=== PATIENT | male | born 1990 | race Caucasian/White ===

== ENCOUNTER 2019-04-11 08:08 | Emergency (ER) | payer SELFPAY ==
[~2019-04-11] VITALS: Ht 137 cm; Wt 108.0 kg
[~2019-04-11 08:08] MED LIST: CYCL10TA9 PO; KETO75CA PO
[2019-04-11] MEDS ORDERED: NS IV 1000 ML 1,000 ML IV SCH (08:28)
--- NOTE | 2019-04-11 08:28 | ED Abdominal Pain ---
General Stated Complaint: BLOOD IN STOOL History of Present Illness Date Seen by Provider: Apr 11, 2019 Time Seen by Provider: 08:23 Initial Comments 28-year-old male presents with blood in his stool. Patient reports that couple days ago he started having some abdominal cramping nausea vomiting after eating some food. He got little bit better than it got worse. Reports he has severe cramping in his lower abdomen feeling like he needs to defecate. Area is very little come out with some what appears to be flakes of blood" with the stool. Patient nausea and vomiting have resolved. He is passing gas. He reports that he's had some hematochezia in the past but nothing like this. He denies any urinary symptoms. He reports that when he gets really that have a stool he gets very sweaty. He denies any other systemic complaints. Allergies and Home Medications Allergies Coded Allergies: No Known Drug Allergies (Unverified , 07/26/14) Home Medications Ciprofloxacin HCl 500 Mg Tablet, 500 MG PO BID Prescribed by: PHYLICIA SULLIVAN on 04/11/19 1056 Dicyclomine HCl 20 Mg Tablet, 20 MG PO TID PRN for PAIN-MODERATE (5-7) Prescribed by: PHYLICIA SULLIVAN on 04/11/19 1056 Metronidazole 500 Mg Tablet, 500 MG PO BID Prescribed by: PHYLICIA SULLIVAN on 04/11/19 1056 Patient Home Medication List Home Medication List Reviewed: Yes Review of Systems Review of Systems Constitutional: No chills; diaphoresis; No fever Respiratory: No Symptoms Reported; Denies Cough, Denies Shortness of Air Cardiovascular: Denies Chest Pain, Denies Irregular Heart Rate Gastrointestinal: See HPI Genitourinary: No Symptoms Reported Skin: no symptoms reported Psychiatric/Neurological: No Symptoms Reported Past Wosojia-Wxqfkz-Gdwrlw Hx Past Med/Social Hx: Reviewed Nursing Past Med/Soc Hx Patient Social History Recent Foreign Travel: No Contact w/Someone Who Travel: No Immunizations Up To Date Tetanus Booster (TDap): Unknown Past Medical History Reproductive Disorders: No Sexually Transmitted Disease: No HIV/AIDS: No Adverse Reaction/Blood Tranf: No Physical Exam Vital Signs Vital Signs - First Documented 04/11/19 08:18 Temp 36.1 Pulse 107 Resp 20 B/P (MAP) 137/108 (118) Pulse Ox 99 Capillary Refill : Height/Weight/BMI Height: 5'11" Weight: 212lbs. oz. 96.595656tb; BMI Method: General Appearance: mild distress Neck: non-tender, full range of motion Respiratory: chest non-tender, lungs clear, normal breath sounds Cardiovascular: normal peripheral pulses, regular rate, rhythm Peripheral Pulses: 2+ Carotid (R), 2+ Carotid (L) Gastrointestinal: non tender, soft; No distended Extremities: normal range of motion, non-tender Neurologic/Psychiatric: telephone sales agent II-XII nml as tested, normal mood/affect, oriented x 3 Skin: normal color, warm/dry Lymphatic: no adenopathy Progress/Results/Core Measures Results/Orders Lab Results Laboratory Tests Test 04/11/19 08:35 04/11/19 08:56 Range/Units White Blood Count 10.7 4.3-11.0 10^3/uL Red Blood Count 5.80 4.35-5.85 10^6/uL Hemoglobin 16.5 13.3-17.7 G/DL Hematocrit 48 40-54 % Mean Corpuscular Volume 82 80-99 FL Mean Corpuscular Hemoglobin 28 25-34 PG Mean Corpuscular Hemoglobin Concent 35 32-36 G/DL Red Cell Distribution Width 12.9 10.0-14.5 % Platelet Count 249 130-400 10^3/uL Mean Platelet Volume 9.9 7.4-10.4 FL Neutrophils (%) (Auto) 83 H 42-75 % Lymphocytes (%) (Auto) 7 L 12-44 % Monocytes (%) (Auto) 10 0-12 % Eosinophils (%) (Auto) 0 0-10 % Basophils (%) (Auto) 0 0-10 % Neutrophils # (Auto) 8.9 H 1.8-7.8 X 10^3 Lymphocytes # (Auto) 0.8 L 1.0-4.0 X 10^3 Monocytes # (Auto) 1.0 0.0-1.0 X 10^3 Eosinophils # (Auto) 0.0 0.0-0.3 10^3/uL Basophils # (Auto) 0.0 0.0-0.1 10^3/uL Neutrophils % (Manual) 67 % Lymphocytes % (Manual) 5 % Monocytes % (Manual) 11 % Eosinophils % (Manual) 2 % Basophils % (Manual) 0 % Band Neutrophils 15 % Blood Morphology Comment NORMAL Erythrocyte Sedimentation Rate 30 H 0-15 MM/HR Sodium Level 140 135-145 MMOL/L Potassium Level 3.9 3.6-5.0 MMOL/L Chloride Level 106 98-107 MMOL/L Carbon Dioxide Level 19 L 21-32 MMOL/L Anion Gap 15 H 5-14 MMOL/L Blood Urea Nitrogen 9 7-18 MG/DL Creatinine 0.89 0.60-1.30 MG/DL Estimat Glomerular Filtration Rate > 60 BUN/Creatinine Ratio 10 Glucose Level 104 70-105 MG/DL Calcium Level 10.3 H 8.5-10.1 MG/DL Corrected Calcium 8.5-10.1 MG/DL Total Bilirubin 0.6 0.1-1.0 MG/DL Aspartate Amino Transf (AST/SGOT) 30 5-34 U/L Alanine Aminotransferase (ALT/SGPT) 36 0-55 U/L Alkaline Phosphatase 97 40-136 U/L C-Reactive Protein High Sensitivity 17.23 H 0.00-0.50 MG/DL Total Protein 8.7 H 6.4-8.2 GM/DL Albumin 4.8 H 3.2-4.5 GM/DL Lipase 14 8-78 U/L Urine Color YELLOW Urine Clarity CLEAR Urine pH 6.0 5-9 Urine Specific [place] >=1.030 1.016-1.022 Urine Protein 3+ H NEGATIVE Urine Glucose (UA) NEGATIVE NEGATIVE Urine Ketones 1+ H NEGATIVE Urine Nitrite NEGATIVE NEGATIVE Urine Bilirubin 1+ H NEGATIVE Urine Urobilinogen 0.2 < = 1.0 MG/DL Urine Leukocyte Esterase NEGATIVE NEGATIVE Urine RBC (Auto) 2+ H NEGATIVE Urine RBC NONE /HPF Urine WBC 2-5 /HPF Urine Squamous Epithelial Cells RARE /HPF Urine Crystals NONE /LPF Urine Bacteria FEW H /HPF Urine Casts PRESENT /LPF Urine Hyaline Casts 2-5 H /LPF Urine Mucus MODERATE H /LPF Urine Other FEW SPERM H /HPF Urine Culture Indicated NO My Orders Orders - PHYLICIA SULLIVAN DO Acute Abd Series (04/11/19 08:28) Cbc With Automated Diff (04/11/19 08:28) Comprehensive Metabolic Panel (04/11/19 08:28) Hs C Reactive Protein (04/11/19 08:28) Erythrocyte Sedimentation Rate (04/11/19 08:28) Lipase (04/11/19 08:28) Ua Culture If Indicated (04/11/19 08:28) Ed Iv/Invasive Line Start (04/11/19 08:28) Ns Iv 1000 Ml (Sodium Chloride 0.9%) (04/11/19 08:28) Manual Differential (04/11/19 08:35) Ondansetron Injection (Zofran Injectio (04/11/19 09:21) Ct Abdomen/Pelvis W (04/11/19 09:54) Iohexol Injection (Omnipaque 350 Mg/Ml 1 (04/11/19 10:00) Received Contrast (Hold Metformin- Contr (04/11/19 10:00) Ns (Ivpb) (Sodium Chloride 0.9% Ivpb Bag (04/11/19 10:00) Medications Given in ED Current Medications Medications Dose Ordered Sig/[place] Route Start Time Stop Time Status Last Admin Dose Admin Ondansetron HCl 4 mg STK-MED ONCE .ROUTE 04/11/19 09:21 04/11/19 09:24 DC 04/11/19 09:25 4 MG Vital Signs/I&O 04/11/19 08:18 Temp 36.1 Pulse 107 Resp 20 B/P (MAP) 137/108 (118) Pulse Ox 99 Departure Impression Primary Impression: Colitis Disposition: 01 HOME, SELF-CARE Condition: Stable Departure-Patient Inst. Referrals: NO,LOCAL PHYSICIAN (PCP/Family) Primary Care Physician Patient Instructions: Colitis Add. Discharge Instructions: Follow-up with primary care provider within 3-5 days for continuation of care, recheck in todays complaints. Scripts Dicyclomine HCl (Dicyclomine HCl) 20 Mg Tablet 20 MG PO TID PRN for PAIN-MODERATE (5-7), #20 TAB Prov: HAYLEE SULLIVANR L DO 04/11/19 Metronidazole (Metronidazole) 500 Mg Tablet 500 MG PO BID, #14 TAB 0 Refills Prov: SULLIVANHAYLEER L DO 04/11/19 Ciprofloxacin HCl (Ciprofloxacin HCl) 500 Mg Tablet 500 MG PO BID, #14 TAB Prov: SULLIVANHAYLEER L DO 04/11/19 SULLIVANHAYLEER L DO Apr 11, 2019 08:28 POS
[2019-04-11 08:52] LABS: BASOPHILS % (AUTO) 0 % (0-10); EOSINOPHILS % (AUTO) 0 % (0-10); HEMATOCRIT 48 % (40-54); HEMOGLOBIN 16.5 G/DL (13.3-17.7); LYMPHOCYTES # (AUTO) 0.8 X 10^3 (1.0-4.0); LYMPHOCYTES % (AUTO) 7 % (12-44); MEAN CORPUSCULAR HEMOGLOBIN 28 PG (25-34); MEAN CORPUSCULAR HGB CONC 35 G/DL (32-36); MEAN CORPUSCULAR VOLUME 82 FL (80-99); MEAN PLATELET VOLUME 9.9 FL (7.4-10.4); MONOCYTES % (AUTO) 10 % (0-12); NEUTROPHILS # (AUTO) 8.9 X 10^3 (1.8-7.8); NEUTROPHILS % (AUTO) 83 % (42-75); PLATELET COUNT 249 10^3/uL (130-400); RED CELL DISTRIBUTION WIDTH 12.9 % (10.0-14.5); WHITE BLOOD COUNT 10.7 10^3/uL (4.3-11.0)
[2019-04-11 09:04] LABS: CLARITY,URINE CLEAR; COLOR,URINE YELLOW; GLUCOSE, URINE (UA) NEGATIVE (NEGATIVE); KETONES,URINE 1+ (NEGATIVE); LEUKOCYTE ESTERASE ,URINE NEGATIVE (NEGATIVE); NITRITE,URINE NEGATIVE (NEGATIVE); PROTEIN,URINE 3+ (NEGATIVE)
[2019-04-11 09:16] LABS: ALANINE AMINOTRANSFERASE 36 U/L (0-55); ALBUMIN 4.8 GM/DL (3.2-4.5); ALKALINE PHOSPHATASE 97 U/L (40-136); BILIRUBIN,TOTAL 0.6 MG/DL (0.1-1.0); BUN/CREATININE RATIO 10; CALCIUM 10.3 MG/DL (8.5-10.1); CARBON DIOXIDE 19 MMOL/L (21-32); CHLORIDE 106 MMOL/L (98-107); CREATININE SERUM 0.89 MG/DL (0.60-1.30); GFR ESTIMATED > 60; GLUCOSE 104 MG/DL (70-105); LIPASE 14 U/L (8-78); POTASSIUM 3.9 MMOL/L (3.6-5.0); SODIUM 140 MMOL/L (135-145); TOTAL PROTEIN 8.7 GM/DL (6.4-8.2)
[2019-04-11 09:17] LABS: BACTERIA,URINE FEW /HPF; BILIRUBIN,URINE 1+ (NEGATIVE); SQUAMOUS EPITHELIAL CELL,UR RARE /HPF; URINE OTHER FEW SPERM /HPF
[2019-04-11 09:21] LABS: BAND NEUTROPHILS 15 %; BASOPHILS % (MANUAL) 0 %; EOSINOPHILS % (MANUAL) 2 %; LYMPHOCYTES % (MANUAL) 5 %; MONOCYTES % (MANUAL) 11 %; NEUTROPHILS % (MANUAL) 67 %; RBC MORPH NORMAL
[2019-04-11] MEDS ORDERED: ONDANSETRON 4 MG/2 ML (SDV) Z0FRAN ONE (09:21)
--- NOTE | 2019-04-11 09:49 | Diagnostic Imaging Report ---
INDICATION: Abdominal pain with bloody diarrhea. EXAMINATION: Supine and upright views of the abdomen are obtained with single view of the chest. FINDINGS: The lungs are clear, bilaterally. Bowel gas pattern is unremarkable. There is no evidence of bowel obstruction. No free intraperitoneal gas or pneumatosis is identified. There is no evidence of pathologic abdominal calcification. IMPRESSION: No acute abnormality. Dictated by: Dictated on workstation # [id number]
[2019-04-11] MEDS ORDERED: IOHEXOL 350 MG/ML 100 ML (OMNIPAQUE 350) VIAL IV ONE (10:00)
[2019-04-11] MEDS ORDERED: HOLD METFORMIN - RECEIVED CONTRAST 20 ML VIAL IV SCH (10:00)
[2019-04-11] MEDS ORDERED: NS 100 ML (IVPB) BAG IV ONE (10:00)
[2019-04-11 10:09] LABS: ERYTHROCYTE SEDIMENTATION RATE 30 MM/HR (0-15)
--- NOTE | 2019-04-11 10:43 | Diagnostic Imaging Report ---
EXAMINATION: CT Abdomen and Pelvis with intravenous contrast. TECHNIQUE: Multiple contiguous axial images were obtained through the abdomen and pelvis after the uneventful administration of intravenous contrast. All CT scans use one or more of the following dose optimizing techniques: automated exposure control, MA and/or KvP adjustment based on a patient size and exam type, or iterative reconstruction. HISTORY: Abdominal pain and diarrhea. COMPARISON: None available. FINDINGS: Limited views of the lower thorax are unremarkable. The liver is normal without focal lesion. There is no biliary ductal dilation. Gallbladder is normal. Pancreas is normal. Spleen is normal. Adrenal glands are normal. The kidneys are normal. There is no hydronephrosis. Urinary bladder is normal. There is submucosal edema and fold thickening of the entire colon. Findings are in keeping with panniculitis. No perforation or abscess. No free fluid or air. No abdominal or pelvic lymphadenopathy. Aorta is normal in caliber without aneurysm. There are no suspicious osseous lesions. IMPRESSION: 1. CT findings of panniculitis with differential of infectious colitis versus inflammatory bowel disease. Dictated by: Dictated on workstation # [id number]
[2019-04-11] MEDS ORDERED: DICY20TA10 PO (10:56)
[2019-04-11] MEDS ORDERED: CIPR500T4 PO (10:56)
[2019-04-11] MEDS ORDERED: METR-145 PO (10:56)
[2019-04-11 11:15] VITALS: BP 132/88
== END 2019-04-11 11:15 | disposition home or self-care (01) ==
LOC: EDUNIT# 08:08 → ER 08:09
DX: K52.9 Noninfective gastroenteritis and colitis, unspecified (principal)
CPT/HCPCS: 36415; 74022; 74177; 80053; 81000; 83690; 85007; 85027; 85652; 86141

== ENCOUNTER 2020-05-29 14:13 | Emergency (ER) | payer SELFPAY ==
[~2020-05-29] VITALS: Ht 180.3 cm; Wt 111.1 kg
[~2020-05-29 14:13] MED LIST changes: +CIPR500T4 PO; +DICY20TA10 PO; +METR-145 PO
--- NOTE | 2020-05-29 14:27 | ED General ---
General Stated Complaint: DIZZY, Source of Information: Patient History of Present Illness Date Seen by Provider: May 29, 2020 Time Seen by Provider: 14:25 Initial Comments PT ARRIVES VIA POV--SISTER ALSO BEING SEEN FOR SIMILAR SYMPTOMS C/O DIZZINESS ON WAKING THIS AM STATES DIZZINESS IS WORSE WHEN HE LAYS DOWN STATES HE DOESN'T FEEL SHORT OF BREATH, BUT HE FEELS LIKE HE CAN'T BREATHE UNLESS HE HAS HIS EYES OPEN C/O CHEST HEAVINESS/TIGHTNESS NO LOSS OF TASTE OR SMELL NO SORE THROAT NO COUGH NO NAUSEA/VOMITING/DIARRHEA OR ABDOMINAL PAIN NO HEADACHE NO BODY ACHES NO VISION CHANGES NO PARESTHESIAS OR MOTOR DEFICITS NO PROBLEMS EATING OR DRINKING VOIDING NORMALLY SISTER HAVING SHORTNESS OF BREATH AND DIARRHEA AND CHEST PAIN X 2 DAYS THEIR FATHER 1 MONTH AGO FROM AN HI. PT IS SUPPOSED TO BE ON BLOOD PRESSURE MEDICATION,--TOOK IT FOR A FEW MONTHS IN 2018, AND NOT TAKEN ANY SINCE. STATES HE LOST HIS INSURANCE. PT SMOKES 1/2-1 PPD PT DRINKS 1-2 PINTS /DAY EVERY DAY--STATES RECENTLY HE ONLY DRINKS 3-4 DAYS DURING THE WEEK AND DRINKS ONCE ON WEEKENDS SMOKES MARIJUANA, STATES NONE FOR > 30 DAYS CENTRAL HEAT/ELECTRIC HEAT. HAVE GAS STOVE, BUT HAVE NOT USED IT RECENTLY. PCP: NONE Allergies and Home Medications Allergies Coded Allergies: No Known Drug Allergies (Unverified , 07/26/14) Home Medications Ciprofloxacin HCl 500 Mg Tablet, 500 MG PO BID Prescribed by: PHYLICIA SULLIVAN on 04/11/19 1056 Dicyclomine HCl 20 Mg Tablet, 20 MG PO TID PRN for PAIN-MODERATE (5-7) Prescribed by: PHYLICIA SULLIVAN on 04/11/19 1056 Hydroxyzine Pamoate 50 Mg Capsule, 50 MG PO Q6H PRN for ANXIETY Prescribed by: CYNDIE NUNEZ on 05/29/20 1611 Metronidazole 500 Mg Tablet, 500 MG PO BID Prescribed by: PHYLICIA SULLIVAN on 04/11/19 1056 Patient Home Medication List Home Medication List Reviewed: Yes Review of Systems Review of Systems Constitutional: see HPI, dizziness EENTM: no symptoms reported Respiratory: see HPI; No cough Cardiovascular: see HPI, chest pain Gastrointestinal: no symptoms reported Genitourinary: no symptoms reported Musculoskeletal: no symptoms reported Skin: no symptoms reported Psychiatric/Neurological: See HPI (RECENT OF FATHER) Hematologic/Lymphatic: No Symptoms Reported Immunological/Allergic: no symptoms reported Past Spdcwzt-Bcyjqw-Ujsgrp Hx Past Med/Social Hx: Reviewed and Corrections made Patient Social History Alcohol Use: Regular Use Alcohol Beverage of Choice: Whiskey Recreational Drug Use: Yes (THC) Drug of Choice: THC Smoking Status: Current Everyday Smoker (2-1 PPD) Type Used: Cigarettes Recent Hopitalizations: No Immunizations Up To Date Tetanus Booster (TDap): Unknown Past Medical History Surgeries: Yes Adenoidectomy, Tonsillectomy Respiratory: No Cardiac: No Neurological: No Reproductive Disorders: No Sexually Transmitted Disease: No HIV/AIDS: No Genitourinary: No Gastrointestinal: No Musculoskeletal: No Endocrine: No HEENT: Yes (S/P T&A) Tonsilitis Cancer: No Psychosocial: No Integumentary: No Blood Disorders: No Adverse Reaction/Blood Tranf: No Family Medical History SOCIAL HISTORY: -ETOH--DRINKS 1-2 PINTS /DAY EVERY DAY--RECENTLY DRINKS 3-4 DAYS DURING WEEK AND ONCE ON WEEKENDS--PER PT 05/29/20 -THC USE--CLAIMS NONE FOR > 30 DAYS, PER PT 05/29/20 -SMOKES /2-1 PPD Physical Exam Vital Signs Vital Signs - First Documented 05/29/20 14:15 Temp 36.5 Pulse 90 Resp 24 B/P (MAP) 142/108 (119) Pulse Ox 100 O2 Delivery Room Air Capillary Refill : Height, Weight, BMI Height: 5'11" Weight: 212lbs. oz. 96.867271tm; 57.00 BMI Method: General Appearance: No Apparent Distress, WD/WN, Other (DOES NOT APPEAR ILL OR TO BE IN ANY DISCOMFORT OR DISTRESS) HEENT: PERRL/EOMI Neck: Full Range of Motion, Normal Inspection, Non Tender, Supple Respiratory: Chest Non Tender, Normal Breath Sounds, No Accessory Muscle Use, N o Respiratory Distress Cardiovascular: Regular Rate, Rhythm, No Edema, No JVD, No Murmur, Normal Peripheral Pulses Gastrointestinal: Normal Bowel Sounds, Non Tender, Soft Extremity: Normal Capillary Refill, Normal Inspection Neurologic/Psychiatric: Alert, Oriented x3, No Motor/Sensory Deficits, Normal Mood/Affect, grid trimmer II-XII Norm as Tested Skin: Normal Color, Warm/Dry, Tattoos/Piercings (EXTENSIVE TATTOOS) Progress/Results/Core Measures Suspected Sepsis SIRS Temperature: Pulse: Respiratory Rate: Laboratory Tests 05/29/20 15:00: White Blood Count 8.5 Blood Pressure / Mean: Laboratory Tests 05/29/20 15:00: Creatinine 0.89, INR Comment 1.0, Platelet Count 243, Total Bilirubin 0.4 Results/Orders Lab Results Micro Results My Orders Vital Signs/I&O Capillary Refill : Progress Note : Progress Note PLACED IN ISOLATION ROOM' PPE WORN AT ALL TIMES COVID-19 TESTING PERFORMED PT ADVISED OF NEED FOR QUARANTINE NO SYMPTOMS DURING ER STAY ECG Initial ECG Impression Date: May 29, 2020 Initial ECG Impression Time: 15:07 Initial ECG Rate: 83 Initial ECG Rhythm: Normal Sinus Initial ECG Comparisson: No Previous ECG Available Diagnostic Imaging Comments CXR--PER RADIOLOGIST REPORT AT 1534 Impression: No acute cardiopulmonary process is detected. Reviewed: Reviewed by Me Departure Impression Primary Impression: TRANSIENT DIZZINESS Additional Impressions: Person under investigation for COVID-19 SITUATIONAL ANXIETY/DEPRESSION HTN (hypertension) Disposition: HOME, SELF-CARE Condition: Stable Departure-Patient Inst. Referrals: [facility] Patient Instructions: Anxiety, Adult (DC), Controlling Your Blood Pressure Through Lifestyle, Coronavirus Disease 2019 (COVID-19) (DC), Depression, Adult (DC), High Blood Pressure (DC), Preventing the Spread of an Infectious Disease, DASH Diet Add. Discharge Instructions: HOME, REST DRINK LOTS OF CLEAR LIQUIDS--WATER, BROTH, JELLO, GATORADE QUARANTINE YOURSELF AND ALL HOUSEHOLD MEMBERS AND CLOSE CONTACTS FOR 2 WEEKS, OR UNTIL CLEARED BY OR HEALTH DEPT. YOU MAY NEED TO BE RECHECKED FOR COVID-19 IN A FEW DAYS IF YOUR SEND OUT COVID TEST IS NEGATIVE AND YOU ARE STILL HAVING SYMPTOMS --Y FOLLOW UP WITH [facility] NEXT WEEK FOR FURTHER CARE Scripts Hydroxyzine Pamoate (Hydroxyzine Pamoate) 50 Mg Capsule 50 MG PO Q6H PRN for ANXIETY, #15 CAP Prov: CYNDIE NUNEZ DO 05/29/20 Work/School Note: Work Release Form Date Seen in the Emergency Department: May 29, 2020 Return to Work: Jun 12, 2020 Restrictions: Need Release from Doctor CYNDIE NUNEZ DO May 29, 2020 14:27
[2020-05-29 14:37] VITALS: BP_SYST 151; BP_SYST 154; BP_SYST 156; BP_DIAS 103; BP_DIAS 119; BP_DIAS 97
[2020-05-29 15:22] LABS: BASOPHILS % (AUTO) 0 % (0-10); EOSINOPHILS # (AUTO) 0.1 10^3/uL (0.0-0.3); EOSINOPHILS % (AUTO) 1 % (0-10); HEMATOCRIT 50 % (40-54); HEMOGLOBIN 16.6 g/dL (13.3-17.7); LYMPHOCYTES # (AUTO) 1.4 10^3/uL (1.0-4.0); LYMPHOCYTES % (AUTO) 17 % (12-44); MEAN CORPUSCULAR HEMOGLOBIN 29 pg (25-34); MEAN CORPUSCULAR HGB CONC 34 g/dL (32-36); MEAN CORPUSCULAR VOLUME 86 fL (80-99); MEAN PLATELET VOLUME 9.7 fL (9.0-12.2); MONOCYTES # (AUTO) 0.6 10^3/uL (0.0-1.0); MONOCYTES % (AUTO) 7 % (0-12); NEUTROPHILS # (AUTO) 6.3 10^3/uL (1.8-7.8); NEUTROPHILS % (AUTO) 75 % (42-75); PLATELET COUNT 243 10^3/uL (130-400); WHITE BLOOD COUNT 8.5 10^3/uL (4.3-11.0)
[2020-05-29 15:26] LABS: BILIRUBIN,URINE NEGATIVE (NEGATIVE); CLARITY,URINE CLEAR; COLOR,URINE YELLOW; GLUCOSE, URINE (UA) NEGATIVE (NEGATIVE); KETONES,URINE NEGATIVE (NEGATIVE); LEUKOCYTE ESTERASE ,URINE NEGATIVE (NEGATIVE); NITRITE,URINE NEGATIVE (NEGATIVE); PH,URINE 7.5 (5-9); PROTEIN,URINE NEGATIVE (NEGATIVE)
--- NOTE | 2020-05-29 15:30 | Diagnostic Imaging Report ---
Indication: Chest pain. Time of exam: 3:21 PM Correlation is made with prior chest from 04/11/2019. The heart size is normal. The pulmonary vascularity is unremarkable. The lungs are clear. No infiltrate, effusion or pneumothorax is detected. Impression: No acute cardiopulmonary process is detected. Dictated by: Dictated on workstation # [id number]
[2020-05-29 15:35] LABS: ALBUMIN 4.6 GM/DL (3.2-4.5); CHLORIDE 103 MMOL/L (98-107); POTASSIUM 4.5 MMOL/L (3.6-5.0); SODIUM 138 MMOL/L (135-145)
[2020-05-29 15:36] LABS: CALCIUM 9.4 MG/DL (8.5-10.1)
[2020-05-29 15:37] LABS: AMYLASE 36 U/L (25-125)
[2020-05-29 15:38] LABS: GLUCOSE 95 MG/DL (70-105); TOTAL PROTEIN 7.7 GM/DL (6.4-8.2)
[2020-05-29 15:39] LABS: BILIRUBIN,TOTAL 0.4 MG/DL (0.1-1.0); CARBON DIOXIDE 25 MMOL/L (21-32)
[2020-05-29 15:41] LABS: ALKALINE PHOSPHATASE 73 U/L (40-136); CREATININE SERUM 0.89 MG/DL (0.60-1.30); GFR ESTIMATED > 60
[2020-05-29 15:42] LABS: BUN/CREATININE RATIO 10
[2020-05-29 15:44] LABS: ALANINE AMINOTRANSFERASE 25 U/L (0-55); MAGNESIUM 2.1 MG/DL (1.6-2.4)
[2020-05-29 15:44] LABS: AMPHETAMINE SCREEN, URINE NEGATIVE (NEGATIVE); BARBITURATE SCREEN URINE NEGATIVE (NEGATIVE); BENZODIAZEPINES SCREEN URINE NEGATIVE (NEGATIVE); CANNABINOID SCREEN, URINE NEGATIVE (NEGATIVE); COCAINE SCREEN URINE NEGATIVE (NEGATIVE); METHADONE STAT NEGATIVE (NEGATIVE); METHAMPHETAMINE SCREEN URINE S NEGATIVE (NEGATIVE); OPIATE SCREEN URINE NEGATIVE (NEGATIVE); OXYCODONE STAT NEGATIVE (NEGATIVE); PROPOXYPHENE STAT NEGATIVE (NEGATIVE); TRICYCLIC ANTIDEPRESSANTS SCRE NEGATIVE (NEGATIVE)
[2020-05-29 15:45] LABS: LIPASE 12 U/L (8-78)
[2020-05-29 15:47] LABS: ERYTHROCYTE SEDIMENTATION RATE 1 MM/HR (0-15)
[2020-05-29 16:04] LABS: BACTERIA,URINE NEGATIVE /HPF; SQUAMOUS EPITHELIAL CELL,UR RARE /HPF
[2020-05-29 16:10] LABS: FIBRIN DEGRADATION PRODUCTS <= 0.27 UG/ML (0.00-0.49); PARTIAL THROMBOPLASTIN TIME 33 SEC (24-35); PROTHROMBIN TIME PATIENT 13.4 SEC (12.2-14.7)
[2020-05-29] MEDS ORDERED: HYDR50CA3 PO (16:11)
[2020-05-29 16:23] VITALS: BP 145/110
== END 2020-05-29 16:23 | disposition home or self-care (01) ==
LOC: EDUNIT# 14:13 → ER 14:15
DX: I10 Essential (primary) hypertension (principal); F41.8 Other specified anxiety disorders; F43.21 Adjustment disorder with depressed mood; F17.210 Nicotine dependence, cigarettes, uncomplicated; Z20.822 Contact with and (suspected) exposure to COVID-19
CPT/HCPCS: 71045; 80053; 80306; 81000; 82150; 82375; 83615; 83690; 83735; 83874; 83880; 84145; 84484; 85025; 85379; 85610; 85652; 85730; 86141; 87804; 93005; 93041; 99284; G0480; U0002; 36415; 80320; 87635

== ENCOUNTER 2020-06-04 19:10 | Emergency (ER) | payer SELFPAY ==
[~2020-06-04] VITALS: Ht 180.3 cm; Wt 108.9 kg
[~2020-06-04 19:10] MED LIST changes: +HYDR50CA3 PO
--- NOTE | 2020-06-04 19:23 | ED General ---
General Stated Complaint: DIZINESS/BLURRED VISION/CHEST PRESSURE Source of Information: Patient Exam Limitations: No Limitations History of Present Illness Date Seen by Provider: Jun 04, 2020 Time Seen by Provider: 19:20 Initial Comments To ER with reports of dizziness blurred vision chest pressure that began a few hours ago. His last drink of alcohol was 2 days ago, about 1 month ago he was drinking about a pint of vodka per day. He was talking to one of his friends at work who suggested this might be a mitral valve regurgitation. He arrives to ER tearful. He states he feels like if he goes to sleep he is going to . His father just about a month ago following myocardial infarction which has further worsened his anxiety. He was started on lisinopril and Cymbalta 2 days ago. Timing/Duration: 1-2 Days Severity: Moderate Allergies and Home Medications Allergies Coded Allergies: No Known Drug Allergies (Unverified , 07/26/14) Home Medications Ciprofloxacin HCl 500 Mg Tablet, 500 MG PO BID Prescribed by: PHYLICIA SULLIVAN on 04/11/19 1056 Dicyclomine HCl 20 Mg Tablet, 20 MG PO TID PRN for PAIN-MODERATE (5-7) Prescribed by: PHYLICIA SULLIVAN on 04/11/19 1056 Hydroxyzine Pamoate 50 Mg Capsule, 50 MG PO Q6H PRN for ANXIETY Prescribed by: CYNDIE NUNEZ on 05/29/20 1611 Metronidazole 500 Mg Tablet, 500 MG PO BID Prescribed by: PHYLICIA SULLIVAN on 04/11/19 1056 Patient Home Medication List Home Medication List Reviewed: Yes Review of Systems Review of Systems Constitutional: see HPI EENTM: see HPI Respiratory: no symptoms reported Cardiovascular: see HPI, chest pain, palpitations Genitourinary: no symptoms reported Musculoskeletal: no symptoms reported Skin: no symptoms reported Psychiatric/Neurological: No Symptoms Reported Hematologic/Lymphatic: No Symptoms Reported Immunological/Allergic: no symptoms reported Past Hvmoxsx-Nyvmhy-Luqjvw Hx Patient Social History Alcohol Beverage of Choice: Whiskey Drug of Choice: THC Type Used: Cigarettes 2nd Hand Smoke Exposure: Yes Recent Hopitalizations: No Immunizations Up To Date Tetanus Booster (TDap): Unknown Past Medical History Surgeries: Yes Adenoidectomy, Tonsillectomy Respiratory: No Cardiac: No Neurological: No Reproductive Disorders: No Sexually Transmitted Disease: No HIV/AIDS: No Genitourinary: No Gastrointestinal: No Musculoskeletal: No Endocrine: No HEENT: Yes (S/P T&A) Tonsilitis Cancer: No Psychosocial: No Integumentary: No Blood Disorders: No Adverse Reaction/Blood Tranf: No Family Medical History SOCIAL HISTORY: -ETOH--DRINKS 1-2 PINTS /DAY EVERY DAY--RECENTLY DRINKS 3-4 DAYS DURING WEEK AND ONCE ON WEEKENDS--PER PT 05/29/20 -THC USE--CLAIMS NONE FOR > 30 DAYS, PER PT 05/29/20 -SMOKES 1/2-1 PPD Physical Exam Vital Signs Vital Signs - First Documented Capillary Refill : Height, Weight, BMI Height: 5'11" Weight: 212lbs. oz. 96.084013yg; 34.00 BMI Method: General Appearance: No Apparent Distress, WD/WN, Anxious Eyes: Bilateral Eye Normal Inspection, Bilateral Eye PERRL, Bilateral Eye EOMI HEENT: PERRL/EOMI, TMs Normal Neck: Full Range of Motion, Normal Inspection Respiratory: No Accessory Muscle Use, No Respiratory Distress Gastrointestinal: Normal Bowel Sounds, Non Tender, Soft Extremity: Normal Capillary Refill, Normal Inspection Neurologic/Psychiatric: Alert, Oriented x3 Skin: Normal Color, Warm/Dry Progress/Results/Core Measures Suspected Sepsis SIRS Temperature: Pulse: Respiratory Rate: Laboratory Tests 06/04/20 19:25: White Blood Count 10.4 Blood Pressure / Mean: Laboratory Tests 06/04/20 19:25: Creatinine 0.94, Platelet Count 316, Total Bilirubin 0.7 Results/Orders Lab Results Laboratory Tests Test 06/04/20 19:25 Range/Units White Blood Count 10.4 4.3-11.0 10^3/uL Red Blood Count 6.34 H 4.30-5.52 10^6/uL Hemoglobin 18.0 H 13.3-17.7 g/dL Hematocrit 53 40-54 % Mean Corpuscular Volume 83 80-99 fL Mean Corpuscular Hemoglobin 28 25-34 pg Mean Corpuscular Hemoglobin Concent 34 32-36 g/dL Red Cell Distribution Width 12.0 10.0-14.5 % Platelet Count 316 130-400 10^3/uL Mean Platelet Volume 9.7 9.0-12.2 fL Immature Granulocyte % (Auto) 0 % Neutrophils (%) (Auto) 73 42-75 % Lymphocytes (%) (Auto) 19 12-44 % Monocytes (%) (Auto) 7 0-12 % Eosinophils (%) (Auto) 1 0-10 % Basophils (%) (Auto) 0 0-10 % Neutrophils # (Auto) 7.7 1.8-7.8 10^3/uL Lymphocytes # (Auto) 1.9 1.0-4.0 10^3/uL Monocytes # (Auto) 0.7 0.0-1.0 10^3/uL Eosinophils # (Auto) 0.1 0.0-0.3 10^3/uL Basophils # (Auto) 0.0 0.0-0.1 10^3/uL Immature Granulocyte # (Auto) 0.0 0.0-0.1 10^3/uL Sodium Level 136 135-145 MMOL/L Potassium Level 3.9 3.6-5.0 MMOL/L Chloride Level 103 98-107 MMOL/L Carbon Dioxide Level 16 L 21-32 MMOL/L Anion Gap 17 H 5-14 MMOL/L Blood Urea Nitrogen 15 7-18 MG/DL Creatinine 0.94 0.60-1.30 MG/DL Estimat Glomerular Filtration Rate > 60 BUN/Creatinine Ratio 16 Glucose Level 95 70-105 MG/DL Calcium Level 10.2 H 8.5-10.1 MG/DL Corrected Calcium 8.5-10.1 MG/DL Total Bilirubin 0.7 0.1-1.0 MG/DL Aspartate Amino Transf (AST/SGOT) 24 5-34 U/L Alanine Aminotransferase (ALT/SGPT) 52 0-55 U/L Alkaline Phosphatase 84 40-136 U/L Troponin I < 0.028 <0.028 NG/ML Total Protein 9.0 H 6.4-8.2 GM/DL Albumin 5.2 H 3.2-4.5 GM/DL Serum Alcohol < 10 <10 MG/DL My Orders Orders - ALEA SILVA APRN Troponin I (06/04/20 19:19) Cbc With Automated Diff (06/04/20 19:19) Alcohol (06/04/20 19:19) Comprehensive Metabolic Panel (06/04/20 19:19) Ed Iv/Invasive Line Start (06/04/20 19:19) Ekg Tracing (1/14/21 19:19) Lorazepam Injection (Ativan Injection) (06/04/20 19:30) Lactated Ringers (Lr 1000 Ml Iv Solution (06/04/20 20:30) Diazepam Tablet (Valium Tablet) (06/04/20 20:30) Medications Given in ED Current Medications Medications Dose Ordered Sig/[place] Route Start Time Stop Time Status Last Admin Dose Admin Lorazepam 1 mg ONCE ONCE IVP 06/04/20 19:30 06/04/20 19:31 DC 06/04/20 19:30 1 MG Vital Signs/I&O 06/04/20 06/04/20 19:15 19:15 Temp 36.0 Pulse 112 Resp 24 B/P (MAP) 145/119 (128) Pulse Ox 99 O2 Delivery Room Air Room Air Capillary Refill : Departure Communication (Admissions) 2027-more relaxed at this time, heart rate down to 97, blood pressure down to 142/96. States that he feels better. I think he has both underlying anxiety and some acute alcohol withdrawal. I will give him a prescription for Librium taper at home to start tomorrow. Impression Primary Impression: HTN (hypertension) Additional Impression: Anxiety Disposition: HOME, SELF-CARE Condition: Stable Departure-Patient Inst. Decision time for Depature: 19:23 Referrals: BERYL WATKINS MD FACP FAC CCDS RENE ALVAREZ MD NO,LOCAL PHYSICIAN (PCP) Primary Care Physician Patient Instructions: Anxiety, Adult ED Add. Discharge Instructions: 1. Call the telephone diaphragm assembler to make an appointment to be seen for follow-up. Return to ER for any concerns. Scripts Chlordiazepoxide HCl (Chlordiazepoxide HCl) 25 Mg Capsule 25 MG PO UD, #6 CAP Day 1: 1 tablet every 8 hours Day 2: 1 tablet every 12 hours Day 3: 1 tablet once a day Prov: ALEA SILVA STAFF TRAINING AND DEVELOPMENT MANAGER 06/04/20 ALEA SILVA STAFF TRAINING AND DEVELOPMENT MANAGER Jun 04, 2020 19:23
[2020-06-04] MEDS ORDERED: LORazepam INJ 2 MG/ML (ATIVAN) VIAL IVP ONE (19:30)
[2020-06-04 19:37] LABS: BASOPHILS % (AUTO) 0 % (0-10); EOSINOPHILS # (AUTO) 0.1 10^3/uL (0.0-0.3); EOSINOPHILS % (AUTO) 1 % (0-10); HEMATOCRIT 53 % (40-54); LYMPHOCYTES # (AUTO) 1.9 10^3/uL (1.0-4.0); LYMPHOCYTES % (AUTO) 19 % (12-44); MEAN CORPUSCULAR HEMOGLOBIN 28 pg (25-34); MEAN CORPUSCULAR HGB CONC 34 g/dL (32-36); MEAN CORPUSCULAR VOLUME 83 fL (80-99); MEAN PLATELET VOLUME 9.7 fL (9.0-12.2); MONOCYTES # (AUTO) 0.7 10^3/uL (0.0-1.0); MONOCYTES % (AUTO) 7 % (0-12); NEUTROPHILS # (AUTO) 7.7 10^3/uL (1.8-7.8); NEUTROPHILS % (AUTO) 73 % (42-75); PLATELET COUNT 316 10^3/uL (130-400); WHITE BLOOD COUNT 10.4 10^3/uL (4.3-11.0)
[2020-06-04 19:41] LABS: ALBUMIN 5.2 GM/DL (3.2-4.5); CHLORIDE 103 MMOL/L (98-107); POTASSIUM 3.9 MMOL/L (3.6-5.0); SODIUM 136 MMOL/L (135-145)
[2020-06-04 19:42] LABS: CALCIUM 10.2 MG/DL (8.5-10.1)
[2020-06-04 19:43] LABS: GLUCOSE 95 MG/DL (70-105)
[2020-06-04 19:44] LABS: CARBON DIOXIDE 16 MMOL/L (21-32)
[2020-06-04 19:45] LABS: BILIRUBIN,TOTAL 0.7 MG/DL (0.1-1.0)
[2020-06-04 19:47] LABS: ALKALINE PHOSPHATASE 84 U/L (40-136)
[2020-06-04 19:48] LABS: BUN/CREATININE RATIO 16; CREATININE SERUM 0.94 MG/DL (0.60-1.30); GFR ESTIMATED > 60
[2020-06-04 19:50] LABS: ALANINE AMINOTRANSFERASE 52 U/L (0-55)
[2020-06-04] MEDS ORDERED: LACTATED RINGERS 1,000 ML IV SCH (20:30)
[2020-06-04] MEDS ORDERED: DIAZEPAM 5 MG (VALIUM) TABLET PO ONE (20:30)
[2020-06-04] MEDS ORDERED: CHLO25CA10 PO (20:33)
[2020-06-04 21:39] VITALS: BP 132/88
== END 2020-06-04 21:39 | disposition home or self-care (01) ==
LOC: EDUNIT# 19:10 → ER 19:12
DX: I10 Essential (primary) hypertension (principal); F41.9 Anxiety disorder, unspecified; Z77.22 Contact with and (suspected) exposure to environmental tobacco smoke (acute) (chronic)
CPT/HCPCS: 80053; 84484; 85025; 93005; 99284; G0480; 36415; 80320

== ENCOUNTER 2020-06-11 14:07 | Emergency (ER) | payer SELFPAY ==
[~2020-06-11] VITALS: Ht 180 cm; Wt 108.0 kg
[~2020-06-11 14:07] MED LIST changes: +CHLO25CA10 PO
--- NOTE | 2020-06-11 14:45 | ED Chest Pain ---
General Chief Complaint: Chest Pain Stated Complaint: CP, L ARM PAIN, DIZZINESS Nursing Triage Note: Pt reports chest pain and L arm pain. Pt reports constant chest pressure for last week and a half. Pt has been seen here in this ER and dx w/ anxiety. Pt reports pain that started this morning and left arm pain new in the last hour. Nursing Sepsis Screen: No Definite Risk Source: patient Exam Limitations: no limitations History of Present Illness Date Seen by Provider: Jun 11, 2020 Time Seen by Provider: 14:28 Initial Comments Patient is a 29-year-old who presents to the emergency department today with a chief complaint of chest discomfort onset around 1130 this morning. 1 hour prior to arrival he started having left arm pain. He is felt cool and clammy and a little short of breath. Patient has been recently diagnosed with hypertension and started on some medications for his blood pressure. He is also recently been on Cymbalta and then switched to BuSpar for anxiety. The BuSpar gave him headaches so he quit that and switched back to his Cymbalta. Patient complains of feeling dizzy with position changes. Patient recently quit alcohol and tobacco 10 days ago and quit smoking marijuana about 6 days ago. He also recently underwent a significant amount of stress over the of his father 1 month ago from a cardiac event. Patient also complains significantly of trouble sleeping. He states he is tried melatonin but that gave him bad dreams. He states that at night when he is trying to fall asleep he all of a sudden gets heart racing and shortness of breath and panic. Patient has had 2 recent visits to the emergency department within the last month for similar complaints without the chest pain. He had fairly extensive work-up with laboratory evaluation including coagulation studies, D-dimer, COVID-19 testing, CBC, cardiac enzyme profile and CMP. Labs have been reviewed from previous visits and all were within normal limits. Patient was referred to his primary care physician on follow-up. Patient denies any recent illnesses such as fever, chills, congestion, nausea vomiting abdominal pain. All other review of systems reviewed and negative except as stated above. Timing/Duration: 1-3 hours Severity/Quality: moderate, pressure Allergies and Home Medications Allergies Coded Allergies: No Known Drug Allergies (Unverified , 07/26/14) Home Medications Chlordiazepoxide HCl 25 Mg Capsule, 25 MG PO UD Day 1: 1 tablet every 8 hours Day 2: 1 tablet every 12 hours Day 3: 1 tablet once a day Prescribed by: ALEA SILVA on 06/04/202033 Ciprofloxacin HCl 500 Mg Tablet, 500 MG PO BID Prescribed by: PHYLICIA SULLIVAN on 04/11/19 105 Dicyclomine HCl 20 Mg Tablet, 20 MG PO TID PRN for PAIN-MODERATE (5-7) Prescribed by: PHYLICIA SULLIVAN on 04/11/19 105 Hydroxyzine Pamoate 50 Mg Capsule, 50 MG PO Q6H PRN for ANXIETY Prescribed by: CYNDIE NUNEZ on 05/29/20 1611 Metronidazole 500 Mg Tablet, 500 MG PO BID Prescribed by: PHYLICIA SULLIVAN on 04/11/19 1056 Patient Home Medication List Home Medication List Reviewed: Yes Review of Systems Review of Systems Constitutional: see HPI EENTM: No Symptoms Reported Respiratory: Shortness of Air Cardiovascular: Chest Pain, Lightheadedness (Dizziness) Gastrointestinal: No Symptoms Reported; Denies Nausea Genitourinary: No Symptoms Reported Musculoskeletal: no symptoms reported Skin: no symptoms reported Psychiatric/Neurological: Anxiety All Other Systems Reviewed Negative Unless Noted: Yes Past Lhetxtc-Xcqfcd-Hupmlr Hx Patient Social History Alcohol Beverage of Choice: Whiskey Drug of Choice: THC Type Used: Cigarettes Former Smoker, Quit: May 22, 2020 2nd Hand Smoke Exposure: Yes Recent Infectious Disease Expo: No Recent Hopitalizations: No Immunizations Up To Date Tetanus Booster (TDap): Unknown Past Medical History Surgeries: Yes Adenoidectomy, Tonsillectomy Respiratory: No Cardiac: No Neurological: No Reproductive Disorders: No Sexually Transmitted Disease: No HIV/AIDS: No Genitourinary: No Gastrointestinal: No Musculoskeletal: No Endocrine: No HEENT: Yes (S/P T&A) Tonsilitis Cancer: No Psychosocial: No Integumentary: No Blood Disorders: No Adverse Reaction/Blood Tranf: No Family Medical History SOCIAL HISTORY: -ETOH--DRINKS 1-2 PINTS /DAY EVERY DAY--RECENTLY DRINKS 3-4 DAYS DURING WEEK AND ONCE ON WEEKENDS--PER PT 05/29/20 -THC USE--CLAIMS NONE FOR > 30 DAYS, PER PT 05/29/20 -SMOKES 1/2-1 PPD Physical Exam Vital Signs Vital Signs - First Documented 06/11/20 14:20 Temp 36.4 Pulse 108 Resp 26 B/P (MAP) 142/97 (112) Pulse Ox 95 O2 Delivery Room Air Capillary Refill : Less Than 3 Seconds Height, Weight, BMI Height: 5'11" Weight: 212lbs. oz. 96.184038sz; 33.00 BMI Method: General Appearance: No Apparent Distress, WD/WN HEENT: PERRL/EOMI Neck: Normal Inspection Respiratory: Lungs Clear, Normal Breath Sounds, No Accessory Muscle Use, No Respiratory Distress Cardiovascular: Regular Rate, Rhythm, Tachycardia Gastrointestinal: Normal Bowel Sounds, Non Tender, Soft Extremity: Normal Capillary Refill, Normal Inspection, Normal Range of Motion, Non Tender, No Pedal Edema Neurologic/Psychiatric: Alert, Oriented x3, No Motor/Sensory Deficits, Normal Mood/Affect, clinical care manager II-XII Norm as Tested Skin: Normal Color, Warm/Dry Progress/Results/Core Measures Results/Orders Lab Results Laboratory Tests Test 06/11/20 14:59 Range/Units White Blood Count 9.4 4.3-11.0 10^3/uL Red Blood Count 6.22 H 4.30-5.52 10^6/uL Hemoglobin 17.6 13.3-17.7 g/dL Hematocrit 51 40-54 % Mean Corpuscular Volume 82 80-99 fL Mean Corpuscular Hemoglobin 28 25-34 pg Mean Corpuscular Hemoglobin Concent 35 32-36 g/dL Red Cell Distribution Width 11.8 10.0-14.5 % Platelet Count 342 130-400 10^3/uL Mean Platelet Volume 9.5 9.0-12.2 fL Immature Granulocyte % (Auto) 0 % Neutrophils (%) (Auto) 72 42-75 % Lymphocytes (%) (Auto) 19 12-44 % Monocytes (%) (Auto) 9 0-12 % Eosinophils (%) (Auto) 1 0-10 % Basophils (%) (Auto) 0 0-10 % Neutrophils # (Auto) 6.7 1.8-7.8 X 10^3 Lymphocytes # (Auto) 1.8 1.0-4.0 X 10^3 Monocytes # (Auto) 0.8 0.0-1.0 X 10^3 Eosinophils # (Auto) 0.1 0.0-0.3 10^3/uL Basophils # (Auto) 0.0 0.0-0.1 10^3/uL Immature Granulocyte # (Auto) 0.0 0.0-0.1 10^3/uL Sodium Level 133 L 135-145 MMOL/L Potassium Level 4.1 3.6-5.0 MMOL/L Chloride Level 98 98-107 MMOL/L Carbon Dioxide Level 21 21-32 MMOL/L Anion Gap 14 5-14 MMOL/L Blood Urea Nitrogen 21 H 7-18 MG/DL Creatinine 1.00 0.60-1.30 MG/DL Estimat Glomerular Filtration Rate > 60 BUN/Creatinine Ratio 21 Glucose Level 96 70-105 MG/DL Calcium Level 9.9 8.5-10.1 MG/DL Troponin I < 0.028 <0.028 NG/ML My Orders Orders - STACY TAYLOR MD Cbc With Automated Diff (06/11/20 14:50) Basic Metabolic Panel (06/11/20 14:50) Troponin I (06/11/20 14:50) Ekg Tracing (06/11/20 14:50) Hydroxyzine Cap/Tab (Vistaril) (06/11/20 15:00) Ns Iv 1000 Ml (Sodium Chloride 0.9%) (06/11/20 15:15) Ns Iv 1000 Ml (Sodium Chloride 0.9%) (06/11/20 15:02) Medications Given in ED Current Medications Medications Dose Ordered Sig/Enrico Route Start Time Stop Time Status Last Admin Dose Admin Hydroxyzine Pamoate 50 mg ONCE ONCE PO 06/11/20 15:00 06/11/20 15:01 DC 06/11/20 15:07 50 MG Vital Signs/I&O 06/11/20 14:20 Temp 36.4 Pulse 108 Resp 26 B/P (MAP) 142/97 (112) Pulse Ox 95 O2 Delivery Room Air Blood Pressure Mean: 112 Progress Progress Note : Time: 16:00 Progress Note Long discussion with this patient concerning his disrupted sleep patterns, and complaints of anxiety and panic disorder. He has follow-up with his primary care physician scheduled as well as Dr. Shanks on the and a therapist on the . He is asking for the Librium that he was prescribed earlier in the month and I did discuss with him the risk of dependency regarding this medication and that there was no real indication at this point 10 days out of quitting drinking for me to represcribe this medication for him. I have advised him to take bfur-eei-davebmw Unisom and will give him some more Vistaril as an outpatient. I recommended that he try some mindfulness techniques and meditation to help him with his panic disorder. He verbalizes understanding. His heart rate is better at the time of discharge down into the 80s. He is still quite tearful and anxious when speaking with me however. I have encouraged him to continue his Cymbalta. He is agreeable with the plan of care. All questions are sought and answered. Patient is stable for discharge. Initial ECG Impression Date: Jun 11, 2020 Initial ECG Impression Time: 14:18 Initial ECG Rate: 115 Initial ECG Rhythm: S.Tach Initial ECG Intervals: Normal Initial ECG Impression: Normal Departure Impression Primary Impression: Atypical chest pain Additional Impressions: Anxiety about health Insomnia Qualified Codes: G47.00 - Insomnia, unspecified Disposition: HOME, SELF-CARE Condition: Stable Departure-Patient Inst. Decision time for Depature: 16:00 Referrals: [facility],LOCAL PHYSICIAN (PCP) Primary Care Physician Patient Instructions: Chest Pain That Is Not Caused by the Heart (DC), Insomnia, Anxiety, Adult ED Add. Discharge Instructions: Continue your prescribed medications as directed. Try vtfz-dzi-sjhdaul Unisom, for sleep. Take the Vistaril every 6-8 hours as needed for anxiety/panic. Research mindfulness techniques and meditation techniques to help with your anxiety. Please keep your follow-up appointment with Dr. Shanks as scheduled as well as your therapy appointment on the . Return to the emergency room for any new concerning or emergent complaints. Scripts Hydroxyzine Pamoate (Vistaril) 50 Mg Capsule 50 MG PO Q6H PRN for ANXIETY, #30 CAP Prov: STACY TAYLOR MD 06/11/20 STACY TAYLOR MD Jun 11, 2020 14:45
[2020-06-11] MEDS ORDERED: hydrOXYzine (VISTARIL/ATARAX) 25 MG capsule/tablet PO ONE (15:00)
[2020-06-11] MEDS ORDERED: NS IV 1000 ML 1,000 ML ONE (15:02)
[2020-06-11 15:11] LABS: BASOPHILS % (AUTO) 0 % (0-10); EOSINOPHILS # (AUTO) 0.1 10^3/uL (0.0-0.3); EOSINOPHILS % (AUTO) 1 % (0-10); HEMATOCRIT 51 % (40-54); HEMOGLOBIN 17.6 g/dL (13.3-17.7); LYMPHOCYTES # (AUTO) 1.8 X 10^3 (1.0-4.0); LYMPHOCYTES % (AUTO) 19 % (12-44); MEAN CORPUSCULAR HEMOGLOBIN 28 pg (25-34); MEAN CORPUSCULAR HGB CONC 35 g/dL (32-36); MEAN CORPUSCULAR VOLUME 82 fL (80-99); MEAN PLATELET VOLUME 9.5 fL (9.0-12.2); MONOCYTES # (AUTO) 0.8 X 10^3 (0.0-1.0); MONOCYTES % (AUTO) 9 % (0-12); NEUTROPHILS # (AUTO) 6.7 X 10^3 (1.8-7.8); NEUTROPHILS % (AUTO) 72 % (42-75); PLATELET COUNT 342 10^3/uL (130-400); WHITE BLOOD COUNT 9.4 10^3/uL (4.3-11.0)
[2020-06-11] MEDS ORDERED: NS IV 1000 ML 1,000 ML IV SCH (15:15)
[2020-06-11 15:21] LABS: CHLORIDE 98 MMOL/L (98-107); POTASSIUM 4.1 MMOL/L (3.6-5.0); SODIUM 133 MMOL/L (135-145)
[2020-06-11 15:22] LABS: CALCIUM 9.9 MG/DL (8.5-10.1)
[2020-06-11 15:23] LABS: GLUCOSE 96 MG/DL (70-105)
[2020-06-11 15:24] LABS: CARBON DIOXIDE 21 MMOL/L (21-32)
[2020-06-11 15:26] LABS: GFR ESTIMATED > 60
[2020-06-11 15:27] LABS: BUN/CREATININE RATIO 21
--- NOTE | 2020-06-11 16:03 | NUR ---
Chetan alatorre in ED - 06/11/20 at 1604 by HLGIBBS pt family at pt bedside at this time.
[2020-06-11] MEDS ORDERED: HYDR50CA PO (16:07)
[2020-06-11 16:10] VITALS: BP 132/87
== END 2020-06-11 16:10 | disposition home or self-care (01) ==
LOC: EDUNIT# 14:07 → ER 14:09
DX: R07.89 Other chest pain (principal); F41.9 Anxiety disorder, unspecified; G47.00 Insomnia, unspecified; Z87.891 Personal history of nicotine dependence
CPT/HCPCS: 36415; 80048; 84484; 85025; 93005

== ENCOUNTER 2020-12-27 13:28 | Emergency (ER) | payer OTHER ==
[~2020-12-27] VITALS: Ht 177 cm; Wt 125.0 kg
[~2020-12-27 13:28] MED LIST changes: -CIPR500T4 PO; +CIPR500T5 PO; +HYDR50CA PO
[2020-12-27] MEDS ORDERED: ONDANSETRON 4 MG (ZOFRAN) ORAL DISSOLVE TAB ONE (13:51)
[2020-12-27] MEDS ORDERED: LISI1TAB29 (13:59)
[2020-12-27] MEDS ORDERED: CITA20TA9 (13:59)
[2020-12-27] MEDS ORDERED: ONDANSETRON 4 MG (ZOFRAN) ORAL DISSOLVE TAB PO ONE (14:00)
[2020-12-27] MEDS ORDERED: LACTATED RINGERS 1,000 ML IV STA (14:08)
[2020-12-27 14:18] LABS: BASOPHILS % (AUTO) 0 % (0-10); EOSINOPHILS # (AUTO) 0.1 10^3/uL (0.0-0.3); EOSINOPHILS % (AUTO) 2 % (0-10); HEMATOCRIT 49 % (40-54); HEMOGLOBIN 15.9 g/dL (13.3-17.7); LYMPHOCYTES # (AUTO) 1.3 10^3/uL (1.0-4.0); LYMPHOCYTES % (AUTO) 25 % (12-44); MEAN CORPUSCULAR HEMOGLOBIN 28 pg (25-34); MEAN CORPUSCULAR HGB CONC 33 g/dL (32-36); MEAN CORPUSCULAR VOLUME 84 fL (80-99); MEAN PLATELET VOLUME 9.7 fL (9.0-12.2); MONOCYTES # (AUTO) 0.5 10^3/uL (0.0-1.0); MONOCYTES % (AUTO) 9 % (0-12); NEUTROPHILS # (AUTO) 3.4 10^3/uL (1.8-7.8); NEUTROPHILS % (AUTO) 64 % (42-75); PLATELET COUNT 235 10^3/uL (130-400); WHITE BLOOD COUNT 5.4 10^3/uL (4.3-11.0)
--- NOTE | 2020-12-27 14:18 | ED Chest Pain ---
General Chief Complaint: Respiratory Problems Stated Complaint: COUGH, VOMITING, SOB Nursing Triage Note: PT COMPLAINS COUGH, SORE THROAT, VOMITING, DIAPHORETIC, STARTING TODAY. CHEST PAIN AT 0100 THAT HE NO LONGER HAS. Source: patient Exam Limitations: no limitations History of Present Illness Date Seen by Provider: Dec 27, 2020 Time Seen by Provider: 13:49 Initial Comments Patient to the ER by private conveyance with chief complaint he woke this morning around 1 in the morning with symptoms that he was having some chest pain left chest with a poking sensation wrapping around to his back. He also is having some nausea and vomiting, severe diaphoresis, sore throat and nonproductive cough. 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 He has not had a Covid vaccination. He sometimes follows with Dr. Samson for hypertension on lisinopril and hydrochlorothiazide. No history of hyperlipidemia. He quit smoking 7 months ago when his dad . His dad of a heart attack at age 54. He says last night he had to sleep sitting up in recliner. He has a little bit of trace edema when he takes his socks off at the end of the day. No known history of heart failure. He smokes occasional marijuana still and drinks whiskey daily but denies history of methamphetamines or cocaine. No history of heart failure or heart disease himself. No hyperlipidemia or diabetes although strong family history of this exists. He says he sometimes is sweaty but never this sweaty. Allergies and Home Medications Allergies Coded Allergies: No Known Drug Allergies (Unverified , 07/26/14) Patient Home Medication List Home Medication List Reviewed: Yes Review of Systems Review of Systems Constitutional: No chills; diaphoresis, malaise EENTM: No Blurred Vision, No Double Vision Respiratory: Denies Cough, Denies Shortness of Air Cardiovascular: See HPI, Chest Pain; Denies Edema Gastrointestinal: Denies Abdominal Pain; Nausea, Vomiting Genitourinary: Denies Burning, Denies Discharge Musculoskeletal: No back pain, No joint pain Skin: see HPI; No pruritus, No rash Psychiatric/Neurological: Anxiety All Other Systems Reviewed Negative Unless Noted: Yes Past Mswvoxo-Mafpgz-Eelxiu Hx Patient Social History Tobacco Use?: No Tobacco type used: Cigarettes Smoking Status: Former Smoker (Quit 7 months ago) Use of E-Cig and/or Vaping dev: No Use of E-Cig and/or Vaping Benigno: Former User Substance use?: Yes Substance type: Marijuana Additional substance use comme: POT Substance frequency: Daily Alcohol type: Hard Liquor Alcohol Frequency: Couple times a week Immunizations Up To Date Tetanus Booster (TDap): Unknown Past Medical History Surgeries: Yes Adenoidectomy, Tonsillectomy Respiratory: No Cardiac: No Neurological: No Reproductive Disorders: No Sexually Transmitted Disease: No HIV/AIDS: No Genitourinary: No Gastrointestinal: No Musculoskeletal: No Endocrine: No HEENT: Yes (S/P T&A) Tonsilitis Cancer: No Psychosocial: No Integumentary: No Blood Disorders: No Adverse Reaction/Blood Tranf: No Family Medical History SOCIAL HISTORY: -ETOH--DRINKS 1-2 PINTS /DAY EVERY DAY--RECENTLY DRINKS 3-4 DAYS DURING WEEK AND ONCE ON WEEKENDS--PER PT 05/29/20 -THC USE--CLAIMS NONE FOR > 30 DAYS, PER PT 05/29/20 -SMOKES 1/2-1 PPD Physical Exam Vital Signs Vital Signs - First Documented 12/27/20 13:45 Temp 35.8 Pulse 65 Resp 16 B/P (MAP) 144/96 (112) Pulse Ox 98 O2 Delivery Room Air Capillary Refill : Less Than 3 Seconds Height, Weight, BMI Height: 5'11" Weight: 212lbs. oz. 96.715550db; 39.00 BMI Method: General Appearance: Mild Distress, Obese HEENT: PERRL/EOMI, Pharynx Normal, Moist Mucous Membranes Neck: Full Range of Motion, Normal Inspection Respiratory: Lungs Clear, Normal Breath Sounds, No Accessory Muscle Use, No Respiratory Distress Cardiovascular: Regular Rate, Rhythm, No Edema, No JVD, Normal Peripheral Pulses Extremity: Normal Capillary Refill, Normal Range of Motion, Non Tender, No Calf Tenderness, Pedal Edema (Trace bilateral) Neurologic/Psychiatric: Alert, Oriented x3, No Motor/Sensory Deficits Skin: Normal Color, Diaphoresis (Profusely) Progress/Results/Core Measures Results/Orders Lab Results Laboratory Tests Test 12/27/20 13:45 12/27/20 14:00 Range/Units Influenza Type A (RT-PCR) Not Detected Not Detecte Influenza Type B (RT-PCR) Not Detected Not Detecte SARS-CoV-2 RNA (RT-PCR) Not Detected Not Detecte White Blood Count 5.4 4.3-11.0 10^3/uL Red Blood Count 5.78 H 4.30-5.52 10^6/uL Hemoglobin 15.9 13.3-17.7 g/dL Hematocrit 49 40-54 % Mean Corpuscular Volume 84 80-99 fL Mean Corpuscular Hemoglobin 28 25-34 pg Mean Corpuscular Hemoglobin Concent 33 32-36 g/dL Red Cell Distribution Width 12.6 10.0-14.5 % Platelet Count 235 130-400 10^3/uL Mean Platelet Volume 9.7 9.0-12.2 fL Immature Granulocyte % (Auto) 0 % Neutrophils (%) (Auto) 64 42-75 % Lymphocytes (%) (Auto) 25 12-44 % Monocytes (%) (Auto) 9 0-12 % Eosinophils (%) (Auto) 2 0-10 % Basophils (%) (Auto) 0 0-10 % Neutrophils # (Auto) 3.4 1.8-7.8 10^3/uL Lymphocytes # (Auto) 1.3 1.0-4.0 10^3/uL Monocytes # (Auto) 0.5 0.0-1.0 10^3/uL Eosinophils # (Auto) 0.1 0.0-0.3 10^3/uL Basophils # (Auto) 0.0 0.0-0.1 10^3/uL Immature Granulocyte # (Auto) 0.0 0.0-0.1 10^3/uL Sodium Level 143 135-145 MMOL/L Potassium Level 3.9 3.6-5.0 MMOL/L Chloride Level 106 98-107 MMOL/L Carbon Dioxide Level 21 21-32 MMOL/L Anion Gap 16 H 5-14 MMOL/L Blood Urea Nitrogen 14 7-18 MG/DL Creatinine 1.10 0.60-1.30 MG/DL Estimat Glomerular Filtration Rate 80 BUN/Creatinine Ratio 13 Glucose Level 100 70-105 MG/DL Calcium Level 10.4 H 8.5-10.1 MG/DL Corrected Calcium 8.5-10.1 MG/DL Total Bilirubin 0.6 0.1-1.0 MG/DL Aspartate Amino Transf (AST/SGOT) 20 5-34 U/L Alanine Aminotransferase (ALT/SGPT) 26 0-55 U/L Alkaline Phosphatase 67 40-136 U/L Troponin I < 0.028 <0.028 NG/ML C-Reactive Protein High Sensitivity 0.29 0.00-0.50 MG/DL B-Type Natriuretic Peptide < 10.0 <100.0 PG/ML Total Protein 7.8 6.4-8.2 GM/DL Albumin 4.6 H 3.2-4.5 GM/DL My Orders Orders - FELIX MEDINA Ondansetron Oral Dissolve Tab (Zofran (12/27/20 14:00) Ondansetron Oral Dissolve Tab (Zofran (12/27/20 13:51) Covid 19 Inhouse Test (12/27/20 14:08) Cbc With Automated Diff (12/27/20 14:08) Comprehensive Metabolic Panel (12/27/20 14:08) Hs C Reactive Protein (12/27/20 14:08) Troponin I (12/27/20 14:08) Continuous Ekg Monitoring (12/27/20 14:08) Ekg Tracing (12/27/20 14:08) Influenza A And B By Pcr (12/27/20 14:08) BNP (12/27/20 14:08) Chest 1 View, Ap/Pa Only (12/27/20 14:08) Lactated Ringers (Lr 1000 Ml Iv Solution (12/27/20 14:08) Medications Given in ED Current Medications Medications Dose Ordered Sig/Enrico Route Start Time Stop Time Status Last Admin Dose Admin Ondansetron HCl 4 mg ONCE ONCE PO 12/27/20 14:00 12/27/20 14:01 DC 12/27/20 13:55 4 MG Vital Signs/I&O 12/27/20 13:45 Temp 35.8 Pulse 65 Resp 16 B/P (MAP) 144/96 (112) Pulse Ox 98 O2 Delivery Room Air Blood Pressure Mean: 112 Progress Progress Note #1: Time: 14:21 Progress Note While the patient's vital signs are un concerning his profuse diaphoresis it is. Chest pain shortness of air cough could be indicative of a pneumonia. Plan to swab him for COVID-19 and get some labs and a chest x-ray. He does not meet septic criteria. A liter of LR. Troponin, BNP EKG for possible myocarditis. Progress Note #2: Time: 15:19 Progress Note 2 points HEART Pathway Score. Low risk, 0.9-1.7% 30-day MACE. Greater than 12 hours after onset of pain. Patient's nausea is much improved. He is no longer sweating and not having any chest pain. We discussed appropriate further work-up that may include seeing the eligibility worker and getting an echocardiogram done. He says he was referred there by his primary care doctor several months ago and never got the echocardiogram because of issues with financial advocate paperwork. We encouraged him strongly to follow-up and do this. He says many times he will wake up b reathless at night and has to sleep sitting up. Initial ECG Impression Date: Dec 27, 2020 Initial ECG Impression Time: 13:50 Initial ECG Rate: 70 Initial ECG Rhythm: Normal Sinus Initial ECG Intervals: Normal Initial ECG Impression: Normal Comment Normal sinus rhythm without clinically relevant ST changes. Diagnostic Imaging Diagonstic Imaging: Xray Plain Films/CT/US/NM/MRI: chest Comments [facility], [place] NAME: NELLY HARDY [facility] REC#: [id number] PT STATUS: REG ER : 1990 PHYSICIAN: FELIX MEDINA MD ADMIT DATE: 12/27/20/ER Draft Date of Exam:12/27/20 CHEST 1 VIEW, AP/PA ONLY INDICATION: Shortness of air. EXAMINATION: Chest, 01/08/2021. COMPARISON: 05/29/2020. FINDINGS: The cardiomediastinal silhouette is unremarkable. The pulmonary vasculature is within normal limits. The lungs and pleural spaces are clear. IMPRESSION: No evidence of an acute cardiopulmonary process. Dictated on workstation # [id number] Dict: 12/27/20 1501 Trans: 12/27/20 1506 [facility] [id number] Interpreted by: ZAIN PETTY MD Electronically signed by: Reviewed: Reviewed by Me Departure Impression Primary Impression: Acute viral syndrome Additional Impression: Myocarditis Qualified Codes: I40.9 - Acute myocarditis, unspecified Disposition: 01 HOME, SELF-CARE Condition: Stable Departure-Patient Inst. Decision time for Depature: 15:30 Referrals: RENE MCCORMACK MD NO,LOCAL PHYSICIAN (PCP) Primary Care Physician Patient Instructions: Viral Syndrome (DC), Myocarditis Add. Discharge Instructions: Drink plenty of fluids. Tylenol 1000 mg every 8 hours as necessary for fever chills or pain. Ibuprofen 800 mg every 8 hours as necessary for fever chills and pain. Zofran 1-2 tablets every 6 hours as necessary for nausea and/or vomiting I suspect this should be self-limited to about 5 to 7 days. If it goes beyond that follow-up with your primary care doctor. Return to work and off isolation when you are 24 hours symptoms free. Follow-up with Dr. Mccormack and discuss performing an echocardiogram outpatient. All discharge instructions reviewed with patient and/or family. Voiced understanding. Scripts Ondansetron (Ondansetron Odt) 4 Mg Tab.rapdis 4-8 MG PO Q6H PRN for NAUSEA/VOMITING, #15 TAB 0 Refills Prov: FELIX MEDINA 12/27/20 Work/School Note: Work Release Form Date Seen in the Emergency Department: Dec 27, 2020 Return to Work: Dec 30, 2020 Restrictions: Return-No Fever (24hrs) Copy Copies To 1: RENE MCCORMACK MD, TITUS J Dec 27, 2020 14:18
[2020-12-27 14:20] LABS: ALBUMIN 4.6 GM/DL (3.2-4.5); CHLORIDE 106 MMOL/L (98-107); POTASSIUM 3.9 MMOL/L (3.6-5.0); SODIUM 143 MMOL/L (135-145)
[2020-12-27 14:22] LABS: CALCIUM 10.4 MG/DL (8.5-10.1)
[2020-12-27 14:23] LABS: GLUCOSE 100 MG/DL (70-105); TOTAL PROTEIN 7.8 GM/DL (6.4-8.2)
[2020-12-27 14:24] LABS: CARBON DIOXIDE 21 MMOL/L (21-32)
[2020-12-27 14:25] LABS: BILIRUBIN,TOTAL 0.6 MG/DL (0.1-1.0)
[2020-12-27 14:26] LABS: ALKALINE PHOSPHATASE 67 U/L (40-136)
[2020-12-27 14:27] LABS: GFR ESTIMATED 80
[2020-12-27 14:28] LABS: BUN/CREATININE RATIO 13
[2020-12-27 14:29] LABS: ALANINE AMINOTRANSFERASE 26 U/L (0-55)
--- NOTE | 2020-12-27 15:06 | Diagnostic Imaging Report ---
INDICATION: Shortness of air. EXAMINATION: Chest, 01/08/2021. COMPARISON: 05/29/2020. FINDINGS: The cardiomediastinal silhouette is unremarkable. The pulmonary vasculature is within normal limits. The lungs and pleural spaces are clear. IMPRESSION: No evidence of an acute cardiopulmonary process. Dictated by: Dictated on workstation # [id number]
[2020-12-27] MEDS ORDERED: ONDA4TAB11 PO (15:31)
[2020-12-27 15:38] VITALS: BP 119/86
== END 2020-12-27 15:38 | disposition home or self-care (01) ==
LOC: EDUNIT# 13:28 → ER 13:31
DX: B34.9 Viral infection, unspecified (principal); I11.9 Hypertensive heart disease without heart failure; E66.9 Obesity, unspecified; Z20.822 Contact with and (suspected) exposure to COVID-19; Z68.39 Body mass index [BMI] 39.0-39.9, adult; Z87.891 Personal history of nicotine dependence; Z79.899 Other long term (current) drug therapy
CPT/HCPCS: 36415; 71045; 80053; 83880; 84484; 85025; 86141; 87636; 93005

== ENCOUNTER 2021-01-17 20:05 | Emergency (ER) | payer OTHER ==
[~2021-01-17] VITALS: Ht 180 cm; Wt 122.0 kg
[~2021-01-17 20:05] MED LIST changes: +CITA20TA9; +LISI1TAB29; +ONDA4TAB11 PO
[2021-01-17] MEDS ORDERED: ACETAMINOPHEN 500 MG TAB (TYLENOL) PO ONE (20:30)
[2021-01-17] MEDS ORDERED: LACTATED RINGERS 1,000 ML IV ONE ×2 (20:41→20:45)
[2021-01-17] MEDS ORDERED: ONDANSETRON 4 MG/2 ML (SDV) Z0FRAN ONE (20:41)
[2021-01-17] MEDS ORDERED: KETOROLAC 30 MG/ML VIAL ONE (20:41)
[2021-01-17] MEDS ORDERED: ONDANSETRON 4 MG/2 ML (SDV) Z0FRAN IVP ONE (20:45)
[2021-01-17] MEDS ORDERED: KETOROLAC 30 MG/ML VIAL IVP ONE (20:45)
[2021-01-17 20:49] LABS: BASOPHILS % (AUTO) 0 % (0-10); EOSINOPHILS % (AUTO) 0 % (0-10); HEMATOCRIT 41 % (40-54); HEMOGLOBIN 13.7 g/dL (13.3-17.7); LYMPHOCYTES # (AUTO) 0.4 10^3/uL (1.0-4.0); LYMPHOCYTES % (AUTO) 14 % (12-44); MEAN CORPUSCULAR HEMOGLOBIN 29 pg (25-34); MEAN CORPUSCULAR HGB CONC 34 g/dL (32-36); MEAN CORPUSCULAR VOLUME 85 fL (80-99); MEAN PLATELET VOLUME 9.9 fL (9.0-12.2); MONOCYTES # (AUTO) 0.4 10^3/uL (0.0-1.0); MONOCYTES % (AUTO) 16 % (0-12); NEUTROPHILS % (AUTO) 70 % (42-75); PLATELET COUNT 165 10^3/uL (130-400); WHITE BLOOD COUNT 2.8 10^3/uL (4.3-11.0)
[2021-01-17 21:01] LABS: ALBUMIN 4.1 GM/DL (3.2-4.5); POTASSIUM 3.2 MMOL/L (3.6-5.0)
[2021-01-17 21:02] LABS: CALCIUM 8.9 MG/DL (8.5-10.1)
[2021-01-17 21:04] LABS: TOTAL PROTEIN 6.8 GM/DL (6.4-8.2)
[2021-01-17 21:05] LABS: BILIRUBIN,TOTAL 0.4 MG/DL (0.1-1.0)
[2021-01-17 21:07] LABS: CREATININE SERUM 1.03 MG/DL (0.60-1.30)
--- NOTE | 2021-01-17 21:13 | Diagnostic Imaging Report ---
EXAMINATION: Chest radiograph, portable AP view. DATE: 01/17/2021 8:53 PM INDICATION: 30-year-old male, cough and shortness of breath. COMPARISON: December 27, 2020. FINDINGS: Heart size and mediastinal contours are unremarkable. There is no identified pneumothorax. There is no large pleural effusion. There is no identified focal airspace consolidation. IMPRESSION: No identified acute cardiopulmonary abnormality. Dictated by: Dictated on workstation # [id number]
[2021-01-17] MEDS ORDERED: KCL 10 MEQ TAB (MICRO K) PO ONE (22:00)
[2021-01-17 22:20] VITALS: BP 0/0
--- NOTE | 2021-01-17 22:33 | ED General ---
General Chief Complaint: Cough/Cold/Flu Symptoms Stated Complaint: TIGHT CHEST,DIZZY,101 FEVER,COUGH,SORE THROAT Nursing Triage Note: Pt here with cough, sore throat, fever, and soa with onset last night. Reports sister has same s/s and tested negative for covid. Pt has not had any antipyretics today. Source of Information: Patient Exam Limitations: No Limitations History of Present Illness Date Seen by Provider: Jan 17, 2021 Time Seen by Provider: 20:12 Initial Comments This 30-year-old young man presents to the emergency room with flulike symptoms including cough, shortness of breath, chest discomfort, lightheadedness, sore throat, myalgias, fever, and nausea. He is not vaccinated. Allergies and Home Medications Allergies Coded Allergies: Iodinated Contrast Media (Verified Adverse Reaction, Unknown, 01/17/21) Home Medications Ondansetron 4 Mg Tab.rapdis, 4-8 MG PO Q6H PRN for NAUSEA/VOMITING Prescribed by: FELIX MEDINA on 12/27/20 1531 Patient Home Medication List Home Medication List Reviewed: Yes Review of Systems Review of Systems Constitutional: see HPI EENTM: see HPI Respiratory: see HPI Cardiovascular: see HPI Gastrointestinal: see HPI Genitourinary: no symptoms reported Musculoskeletal: see HPI Skin: no symptoms reported Psychiatric/Neurological: No Symptoms Reported Hematologic/Lymphatic: No Symptoms Reported Immunological/Allergic: no symptoms reported Past Akktvkt-Oewqrz-[id number] Hx Patient Social History Smoking Status: Former Smoker Substance type: Marijuana Pt feels they are or have been: No Immunizations Up To Date Tetanus Booster (TDap): Unknown Past Medical History Surgeries: Yes Adenoidectomy, Tonsillectomy Respiratory: No Cardiac: No Neurological: No Reproductive Disorders: No Sexually Transmitted Disease: No HIV/AIDS: No Genitourinary: No Gastrointestinal: No Musculoskeletal: No Endocrine: No HEENT: Yes (S/P T&A) Tonsilitis Cancer: No Psychosocial: No Integumentary: No Blood Disorders: No Adverse Reaction/Blood Tranf: No Family Medical History SOCIAL HISTORY: -ETOH--DRINKS 1-2 PINTS /DAY EVERY DAY--RECENTLY DRINKS 3-4 DAYS DURING WEEK AND ONCE ON WEEKENDS--PER PT 05/29/20 -THC USE--CLAIMS NONE FOR > 30 DAYS, PER PT 05/29/20 -SMOKES 1/2-1 PPD Physical Exam Vital Signs Vital Signs - First Documented 01/17/21 01/17/21 20:16 22:20 Temp 38.7 Pulse 112 Resp 22 B/P (MAP) 146/90 (108) Pulse Ox 0 O2 Delivery Room Air O2 Flow Rate 0 Capillary Refill : Less Than 3 Seconds Height, Weight, BMI Height: 5'11" Weight: 212lbs. oz. 96.255431wm; 37.00 BMI Method: General Appearance: WD/WN, Mild Distress, Obese HEENT: PERRL/EOMI, Normal ENT Inspection, Pharyngeal Erythema Neck: Normal Inspection Respiratory: Lungs Clear, Normal Breath Sounds, No Accessory Muscle Use, No Respiratory Distress Cardiovascular: No Edema, No Murmur, Tachycardia Gastrointestinal: Normal Bowel Sounds, Non Tender, Soft Extremity: Normal Inspection, Non Tender, No Pedal Edema Neurologic/Psychiatric: Alert, Oriented x3, No Motor/Sensory Deficits, room clerk II- XII Norm as Tested, Other (Mildly irritable) Skin: Normal Color, Warm/Dry Progress/Results/Core Measures Suspected Sepsis SIRS Temperature: Pulse: 0 Respiratory Rate: 0 Laboratory Tests 01/17/21 20:34: White Blood Count 2.8L Blood Pressure 0 /0 Mean: 108 Laboratory Tests 01/17/21 20:34: Creatinine 1.03, Platelet Count 165, Total Bilirubin 0.4 Results/Orders Lab Results Laboratory Tests Test 01/17/21 20:15 01/17/21 20:34 01/17/21 21:15 Range/Units Influenza Type A (RT-PCR) Not Detected Not Detecte Influenza Type B (RT-PCR) Not Detected Not Detecte SARS-CoV-2 RNA (RT-PCR) Detected H Not Detecte Group A Streptococcus Screen NEGATIVE NEGATIVE White Blood Count 2.8 L 4.3-11.0 10^3/uL Red Blood Count 4.80 4.30-5.52 10^6/uL Hemoglobin 13.7 13.3-17.7 g/dL Hematocrit 41 40-54 % Mean Corpuscular Volume 85 80-99 fL Mean Corpuscular Hemoglobin 29 25-34 pg Mean Corpuscular Hemoglobin Concent 34 32-36 g/dL Red Cell Distribution Width 12.6 10.0-14.5 % Platelet Count 165 130-400 10^3/uL Mean Platelet Volume 9.9 9.0-12.2 fL Immature Granulocyte % (Auto) 0 % Neutrophils (%) (Auto) 70 42-75 % Lymphocytes (%) (Auto) 14 12-44 % Monocytes (%) (Auto) 16 H 0-12 % Eosinophils (%) (Auto) 0 0-10 % Basophils (%) (Auto) 0 0-10 % Neutrophils # (Auto) 2.0 1.8-7.8 10^3/uL Lymphocytes # (Auto) 0.4 L 1.0-4.0 10^3/uL Monocytes # (Auto) 0.4 0.0-1.0 10^3/uL Eosinophils # (Auto) 0.0 0.0-0.3 10^3/uL Basophils # (Auto) 0.0 0.0-0.1 10^3/uL Immature Granulocyte # (Auto) 0.0 0.0-0.1 10^3/uL Sodium Level 135 135-145 MMOL/L Potassium Level 3.2 L 3.6-5.0 MMOL/L Chloride Level 104 98-107 MMOL/L Carbon Dioxide Level 20 L 21-32 MMOL/L Anion Gap 11 5-14 MMOL/L Blood Urea Nitrogen 9 7-18 MG/DL Creatinine 1.03 0.60-1.30 MG/DL Estimat Glomerular Filtration Rate 86 BUN/Creatinine Ratio 9 Glucose Level 146 H 70-105 MG/DL Calcium Level 8.9 8.5-10.1 MG/DL Corrected Calcium 8.8 8.5-10.1 MG/DL Total Bilirubin 0.4 0.1-1.0 MG/DL Aspartate Amino Transf (AST/SGOT) 16 5-34 U/L Alanine Aminotransferase (ALT/SGPT) 20 0-55 U/L Alkaline Phosphatase 48 40-136 U/L C-Reactive Protein High Sensitivity 1.22 H 0.00-0.50 MG/DL Total Protein 6.8 6.4-8.2 GM/DL Albumin 4.1 3.2-4.5 GM/DL D-Dimer 0.45 0.00-0.49 UG/ML Micro Results Microbiology 01/17/21 Throat Culture - Preliminary, Resulted No Beta Strep isolated My Orders Orders - CECILIO MEDEIROS MD Acetaminophen Tablet (Tylenol Tablet) (01/17/21 20:30) Ketorolac Injection (Toradol Injection) (01/17/21 20:41) Ondansetron Injection (Zofran Injectio (01/17/21 20:41) Cbc With Automated Diff (01/17/21 20:42) Comprehensive Metabolic Panel (01/17/21 20:42) Hs C Reactive Protein (01/17/21 20:42) Chest 1 View, Ap/Pa Only (01/17/21 20:42) Ed Iv/Invasive Line Start (01/17/21 20:42) Lactated Ringers (Lr 1000 Ml Iv Solution (01/17/21 20:45) Ketorolac Injection (Toradol Injection) (01/17/21 20:45) Ondansetron Injection (Zofran Injectio (01/17/21 20:45) Lactated Ringers (Lr 1000 Ml Iv Solution (01/17/21 20:41) Potassium Chloride (Tablet) (Klor Con Ta (01/17/21 22:00) Fibrin Degradation Products (01/17/21 21:49) Medications Given in ED Vital Signs/I&O 01/17/21 01/17/21 20:16 22:20 Temp 38.7 Pulse 112 0 Resp 22 0 B/P (MAP) 146/90 (108) 0/0 Pulse Ox 0 O2 Delivery Room Air O2 Flow Rate 0 Capillary Refill : Less Than 3 Seconds Blood Pressure Mean: 108 Progress Note : Progress Note Patient received Toradol, Zofran, and Tylenol for symptom management. IV fluids were infused. Covid 19 test was positive. Influenza was negative. Patient did not want to wait for his results or to finish treatment. He left AGAINST MEDICAL ADVICE. He did qualify for monoclonal antibody therapy and was contacted later. He was directed to the fact sheet online and alternatives were reviewed. Order was placed to the pharmacy on his behalf. Positive Covid result was communicated to him by phone. Departure Impression Primary Impression: COVID-19 Disposition: 07 AGAINST MEDICAL ADVICE Condition: Against Medical Advice Departure-Patient Inst. Referrals: NO,LOCAL PHYSICIAN (PCP) Primary Care Physician GOKUL PEPE APRN (Family) Primary Care Physician Copy Copies To 1: TONY HOLLY JOSHUA T MD Jan 17, 2021 22:33
== END 2021-01-17 22:19 | disposition left against medical advice (07) ==
LOC: EDUNIT# 20:05 → ER 20:07
DX: U07.1 COVID-19 (principal); E66.9 Obesity, unspecified; Z68.37 Body mass index [BMI] 37.0-37.9, adult
CPT/HCPCS: 36415; 71045; 80053; 85025; 85379; 86141; 87430; 87636

== ENCOUNTER 2021-01-21 09:09 | Emergency (ER) | payer OTHER ==
[~2021-01-21] VITALS: Ht 180 cm; Wt 120.0 kg
[2021-01-21] MEDS ORDERED: diphenhydrAMINE 50 MG/ML INJ (BENADRYL) IM ONE (12:00)
--- NOTE | 2021-01-21 12:01 | ED Integumentary General ---
General Chief Complaint: COVID19 Suspect/Confirmed Stated Complaint: COVID +, RASH Nursing Triage Note: ARRIVED VIA AMB TO ROOM 10. COVID POSITIVE. STATES HE STARTED DEVELOPING A RASH APPX 2 DAYS AGO WHEN HE STARTED TAKING TYLENOL AROUND THE CLOCK. HAS NOT TAKEN ANYTHING FOR THE RASH. Source: patient Exam Limitations: no limitations History of Present Illness Date Seen by Provider: Jan 21, 2021 Time Seen by Provider: 11:30 Initial Comments This is a well-appearing 30-year-old male who presents to the ER with complaints of rash on his inner bilateral upper arms inner bilateral thighs that started 2 days ago. States he has been taking Tylenol every 6 hours scheduled [id number]. Had been taking max dose for a couple days when the rash started. States he stopped Tylenol when rash developed per bottle instructions. Has not taken any Benadryl or antihistamines due to isolation with COVID. States that rash does not itch, burn, any discomfort. Has intermittent fever, nausea, diarrhea, since diagnosis of COVID on 01/19/2021, but states symptoms are improving. Has no cough, shortness of breath, chest pain, abdominal pain, dysuria. Denies any other new medications, soaps, or lotions. Denies any new foods. Allergies and Home Medications Allergies Coded Allergies: Iodinated Contrast Media (Verified Adverse Reaction, Unknown, 01/17/21) Patient Home Medication List Home Medication List Reviewed: Yes Review of Systems Review of Systems Constitutional: chills, fever EENTM: no symptoms reported Respiratory: no symptoms reported Cardiovascular: no symptoms reported Gastrointestinal: see HPI Genitourinary: no symptoms reported Musculoskeletal: no symptoms reported Skin: see HPI Psychiatric/Neurological: No Symptoms Reported Endocrine: No Symptoms Reported Hematologic/Lymphatic: No Symptoms Reported Past Mlqpklo-Swjzns-Iwfihg Hx Patient Social History Smoking Status: Never a Smoker Substance use?: Yes Substance type: Marijuana Alcohol Use?: Yes Alcohol Frequency: Couple times a week Immunizations Up To Date Tetanus Booster (TDap): Unknown Past Medical History Surgeries: Yes Adenoidectomy, Tonsillectomy Respiratory: No Cardiac: No Neurological: No Reproductive Disorders: No Sexually Transmitted Disease: No HIV/AIDS: No Genitourinary: No Gastrointestinal: No Musculoskeletal: No Endocrine: No HEENT: Yes (S/P T&A) Tonsilitis Cancer: No Psychosocial: No Integumentary: No Blood Disorders: No Adverse Reaction/Blood Tranf: No Family Medical History SOCIAL HISTORY: -ETOH--DRINKS 1-2 PINTS /DAY EVERY DAY--RECENTLY DRINKS 3-4 DAYS DURING WEEK AND ONCE ON WEEKENDS--PER PT 05/29/20 -THC USE--CLAIMS NONE FOR > 30 DAYS, PER PT 05/29/20 -SMOKES 1/2-1 PPD Physical Exam Vital Signs Vital Signs - First Documented 01/21/21 09:25 Temp 37.6 Pulse 115 Resp 16 B/P (MAP) 130/102 (111) Pulse Ox 95 O2 Delivery Room Air Capillary Refill : Less Than 3 Seconds General Appearance: WD/WN, no apparent distress HEENT: PERRL/EOMI, normal ENT inspection, TMs normal, pharynx normal Neck: full range of motion, normal inspection Cardiovascular: regular rate, rhythm, no murmur Respiratory: lungs clear, normal breath sounds, no respiratory distress, no accessory muscle use Gastrointestinal: normal bowel sounds, non tender, soft Extremities: normal range of motion, normal inspection Neurologic/Psychiatric: no motor/sensory deficits, alert, normal mood/affect, oriented x 3 Skin: normal color, warm/dry Skin Problem Location: upper extremities (inner arms bilaterally, left dorsal hand ), lower extremities (inner thighs bilaterally ) Skin Problem Character: blanching, erythema, rash, urticarial (blanchable ) Lymphatic: no adenopathy Progress/Results/Core Measures Results/Orders Lab Results Laboratory Tests Test 01/21/21 12:00 Range/Units White Blood Count 2.4 L 4.3-11.0 10^3/uL Red Blood Count 5.78 H 4.30-5.52 10^6/uL Hemoglobin 16.3 13.3-17.7 g/dL Hematocrit 48 40-54 % Mean Corpuscular Volume 83 80-99 fL Mean Corpuscular Hemoglobin 28 25-34 pg Mean Corpuscular Hemoglobin Concent 34 32-36 g/dL Red Cell Distribution Width 12.0 10.0-14.5 % Platelet Count 119 L 130-400 10^3/uL Mean Platelet Volume 10.0 9.0-12.2 fL Immature Granulocyte % (Auto) 0 % Neutrophils (%) (Auto) 73 42-75 % Lymphocytes (%) (Auto) 17 12-44 % Monocytes (%) (Auto) 10 0-12 % Eosinophils (%) (Auto) 0 0-10 % Basophils (%) (Auto) 0 0-10 % Neutrophils # (Auto) 1.7 L 1.8-7.8 10^3/uL Lymphocytes # (Auto) 0.4 L 1.0-4.0 10^3/uL Monocytes # (Auto) 0.2 0.0-1.0 10^3/uL Eosinophils # (Auto) 0.0 0.0-0.3 10^3/uL Basophils # (Auto) 0.0 0.0-0.1 10^3/uL Immature Granulocyte # (Auto) 0.0 0.0-0.1 10^3/uL Percent Immature Platelet Fraction 3.6 0.0-7.6 % Sodium Level 131 L 135-145 MMOL/L Potassium Level 3.6 3.6-5.0 MMOL/L Chloride Level 98 98-107 MMOL/L Carbon Dioxide Level 20 L 21-32 MMOL/L Anion Gap 13 5-14 MMOL/L Blood Urea Nitrogen 9 7-18 MG/DL Creatinine 0.93 0.60-1.30 MG/DL Estimat Glomerular Filtration Rate 97 BUN/Creatinine Ratio 10 Glucose Level 102 70-105 MG/DL Calcium Level 9.7 8.5-10.1 MG/DL Corrected Calcium 8.5-10.1 MG/DL Total Bilirubin 0.5 0.1-1.0 MG/DL Aspartate Amino Transf (AST/SGOT) 23 5-34 U/L Alanine Aminotransferase (ALT/SGPT) 27 0-55 U/L Alkaline Phosphatase 53 40-136 U/L Total Protein 8.2 6.4-8.2 GM/DL Albumin 4.6 H 3.2-4.5 GM/DL My Orders Orders - ASIF CAGLE [employer]ARED SERVICES MANAGER Cbc With Automated Diff (01/21/21 11:49) Comprehensive Metabolic Panel (01/21/21 11:49) Dexamethasone Injection (Decadron Inje (01/21/21 12:00) Diphenhydramine Injection (Benadryl Inje (01/21/21 12:00) Ondansetron Oral Dissolve Tab (Zofran (01/21/21 12:15) Medications Given in ED Current Medications Medications Dose Ordered Sig/[place] Route Start Time Stop Time Status Last Admin Dose Admin Dexamethasone Sodium Phosphate 10 mg ONCE ONCE IM 01/21/21 12:00 01/21/21 12:01 DC 01/21/21 12:02 10 MG Diphenhydramine HCl 50 mg ONCE ONCE IM 01/21/21 12:00 01/21/21 12:01 DC 01/21/21 12:01 50 MG Ondansetron HCl 4 mg ONCE ONCE PO 01/21/21 12:15 01/21/21 12:16 DC 01/21/21 12:09 4 MG Vital Signs/I&O 01/21/21 09:25 Temp 37.6 Pulse 115 Resp 16 B/P (MAP) 130/102 (111) Pulse Ox 95 O2 Delivery Room Air Blood Pressure Mean: 111 Progress Progress Note : Progress Note Patient examined and in no acute distress. Will order basic labs to evaluate platelet count and LFTs. Will give Decadron 10 mg IM and Benadryl 50 mg IM. Reported feeling nauseated with IM injection. Given PO Zofran. Reported feeling improved with Zofran. Labs reviewed. Decreased WBC, Lymphocytes, and slight decrease in platelets consistent with COVID virus. Will have him take medrol dose pack, benadryl PRN and stop Tylenol to see if this will improve rash. He is to return to ER if his symptoms worsen despite plan. Discharge plan of care reviewed and he is agreeable with plan. His mother is picking up Benadryl and Steroids from [facility]. Departure Impression Primary Impression: Urticaria Additional Impression: COVID-19 Disposition: 01 HOME, SELF-CARE Condition: Stable Departure-Patient Inst. Decision time for Depature: 12:34 Referrals: MONIKA,LOCAL PHYSICIAN (PCP) Primary Care Physician GOKUL PEPE APRN (Family) Primary Care Physician Patient Instructions: COVID-19 (DC), Hives (DC) Add. Discharge Instructions: Plan: 1. Continue to isolate at home as directed by the [facility]. 2. Take Steroids with food as directed. 3. Stop Tylenol and switch to Ibuprofen as needed per package for fever. Do not schedule around the clock. Take only as needed. Take Ibuprofen with food. 4. Use Benadryl 25mg every 6 hours as needed for rash. 5. Return tomorrow for REGEN infusion. 6. Return to ER if your rash worsens despite taking Benadryl, Steroids, and Stopping Tylenol. 7. Return to ER if you develop any new, concerning, or worsening symptoms. All discharge instructions reviewed with patient and/or family. Voiced understanding. Scripts Methylprednisolone (Methylprednisolone Dose Pack) 4 Mg Tab.ds.pk 4 MG PO UD for 6 Days, #21 PKG 0 Refills PER DOSE PACK INSTRUCTIONS Prov: ASIF CAGLE APRN 01/21/21 Copy Copies To 1: [facility] [place] ASIF CAGLE APRN Jan 21, 2021 12:01
[2021-01-21 12:08] LABS: BASOPHILS % (AUTO) 0 % (0-10); EOSINOPHILS % (AUTO) 0 % (0-10); HEMOGLOBIN 16.3 g/dL (13.3-17.7)
[2021-01-21 12:10] LABS: HEMATOCRIT 48 % (40-54); LYMPHOCYTES # (AUTO) 0.4 10^3/uL (1.0-4.0); LYMPHOCYTES % (AUTO) 17 % (12-44); MEAN CORPUSCULAR HEMOGLOBIN 28 pg (25-34); MEAN CORPUSCULAR HGB CONC 34 g/dL (32-36); MEAN CORPUSCULAR VOLUME 83 fL (80-99); MONOCYTES # (AUTO) 0.2 10^3/uL (0.0-1.0); MONOCYTES % (AUTO) 10 % (0-12); NEUTROPHILS # (AUTO) 1.7 10^3/uL (1.8-7.8); NEUTROPHILS % (AUTO) 73 % (42-75); PLATELET COUNT 119 10^3/uL (130-400); WHITE BLOOD COUNT 2.4 10^3/uL (4.3-11.0)
[2021-01-21] MEDS ORDERED: ONDANSETRON 4 MG (ZOFRAN) ORAL DISSOLVE TAB PO ONE (12:15)
[2021-01-21 12:16] LABS: ALBUMIN 4.6 GM/DL (3.2-4.5); CHLORIDE 98 MMOL/L (98-107); POTASSIUM 3.6 MMOL/L (3.6-5.0); SODIUM 131 MMOL/L (135-145)
[2021-01-21 12:18] LABS: CALCIUM 9.7 MG/DL (8.5-10.1)
[2021-01-21 12:19] LABS: GLUCOSE 102 MG/DL (70-105); TOTAL PROTEIN 8.2 GM/DL (6.4-8.2)
[2021-01-21 12:20] LABS: CARBON DIOXIDE 20 MMOL/L (21-32)
[2021-01-21 12:21] LABS: BILIRUBIN,TOTAL 0.5 MG/DL (0.1-1.0)
[2021-01-21 12:22] LABS: ALKALINE PHOSPHATASE 53 U/L (40-136); CREATININE SERUM 0.93 MG/DL (0.60-1.30); GFR ESTIMATED 97
[2021-01-21 12:23] LABS: BUN/CREATININE RATIO 10
[2021-01-21 12:25] LABS: ALANINE AMINOTRANSFERASE 27 U/L (0-55)
[2021-01-21] MEDS ORDERED: METH4TAB10 PO (12:40)
[2021-01-21 12:46] VITALS: BP 131/95
== END 2021-01-21 12:46 | disposition home or self-care (01) ==
LOC: EDUNIT# 09:09 → ER 09:12
DX: L50.9 Urticaria, unspecified (principal); U07.1 COVID-19
CPT/HCPCS: 36415; 80053; 85025

== ENCOUNTER 2021-01-22 10:58 | Outpatient (CLI) | payer SELFPAY ==
[~2021-01-22] VITALS: Ht 180.3 cm; Wt 116.1 kg
[2021-01-22 10:57] VITALS: BP 157/98
[~2021-01-22 10:58] MED LIST changes: +METH4TAB10 PO
[2021-01-22] MEDS ORDERED: diphenhydrAMINE 50 MG/ML INJ (BENADRYL) IV PRN (11:15)
[2021-01-22] MEDS ORDERED: EPINEPHrine INJECTION 1 MG/ML AMP IM PRN (11:15)
[2021-01-22] MEDS ORDERED: ACETAMINOPHEN 500 MG TAB (TYLENOL) PO PRN (11:15)
[2021-01-22] MEDS ORDERED: CASIRIVIMAB/IMDEVIMAB 1,200 MG in NS (IVPB) 250 ML IV ONE (11:15)
[2021-01-22] MEDS ORDERED: ONDANSETRON 4 MG/2 ML (SDV) Z0FRAN IV PRN (11:15)
[2021-01-22 12:06] VITALS: BP 135/85
== END 2021-01-22 13:00 | disposition home or self-care (01) ==
LOC: INFUSION 10:58
PROVIDERS: ATTEND Nurse Practitioner Family
DX: Z23 Encounter for immunization (principal); U07.1 COVID-19